=== PATIENT | female | born 2000 | race American Indian/Alaskan Native ===

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

== ENCOUNTER 2020-02-04 11:38 | Emergency (ER) | payer MEDICAID, OTHER ==
[2020-02-04 11:53] VITALS: BP 138/81; PULSE 88
--- NOTE | 2020-02-04 12:02 | EDM.PDOC ---
ED HPI GENERAL MEDICAL PROBLEM - General Chief Complaint: General Stated Complaint: POSSIBLE BLOOD CLOTS Time Seen by Provider: 02/04/20 11:55 Source of Information: Reports: Patient History Limitations: Reports: No Limitations - History of Present Illness INITIAL COMMENTS - FREE TEXT/NARRATIVE: This 19 yo female patient reports to the ED due to believing she may have blood clots. The patient reports she noticed some swelling and pain in her right upper arm as well as noticed some "spots" on her legs. The patient reports she has also had a sore throat (with drainage), a cough, chills and generalized body aches. The patient reports she has been isolating herself with no travel or contact with ill people. The patient reports she has not even had her children around her. The patient reports her symptoms started 2-3 days ago. The patient reports she looked up the symptoms on the internet. Onset Date: 02/02/20 Duration: Constant, Getting Worse Location: Reports: Other Quality: Reports: Other Severity: Mild Improves with: Reports: None Worsens with: Reports: None Context: Reports: Other Associated Symptoms: Reports: No Other Symptoms Generalized Pain Score (Numeric/FACES): 3 - Related Data Allergies Allergy/AdvReac Type Severity Reaction Status Date / Time amoxicillin Allergy Rash Verified 02/04/20 11:45 Home Meds: Home Meds . [No Known Home Meds] 12/26/17 [History] Ferrous Sulfate 325 mg PO DAILY 02/04/20 [History] Past Medical History - Past Health History Medical/Surgical History: Denies Medical/Surgical History HEENT History: Reports: None Cardiovascular History: Reports: None Respiratory History: Reports: None Gastrointestinal History: Reports: None Genitourinary History: Reports: None LOAN CONSULTANT History: Reports: , Other (See Below) Other LOAN CONSULTANT History: vaginal delivery Musculoskeletal History: Reports: None Neurological History: Reports: None Psychiatric History: Reports: Depression, Suicide Attempt Endocrine/Metabolic History: Reports: None Hematologic History: Reports: None Immunologic History: Reports: None Oncologic (Cancer) History: Reports: None Dermatologic History: Reports: None - Infectious Disease History Infectious Disease History: Reports: None - Past Surgical History Head Surgeries/Procedures: Reports: None Other HEENT Surgeries/Procedures: dental infection jun 2015 Cardiovascular Surgical History: Reports: None GI Surgical History: Reports: None Social & Family History - Family History Family Medical History: Noncontributory Cardiac: Reports: Hypertension Endocrine/Metabolic: Reports: Diabetes, type II - Tobacco Use Smoking Status *Q: Light Tobacco Smoker Years of Tobacco use: 2 Packs/Tins Daily: 0.3 - Caffeine Use Caffeine Use: Reports: None Other Caffeine Use: OCC - Alcohol Use Days Per Week of Alcohol Use: 2 Number of Drinks Per Day: 8 Total Drinks Per Week: 16 - Recreational Drug Use Recreational Drug Use: Yes Recreational Drug Type: Reports: Marijuana/Hashish Recreational Drug Use Frequency: Weekly - Sexual History Sexual History: Reports: Sexually Active ED ROS GENERAL - Review of Systems Review Of Systems: Comprehensive ROS is negative, except as noted in HPI. ED EXAM, GENERAL - Physical Exam Exam: See Below Exam Limited By: No Limitations General Appearance: Alert, WD/WN, No Apparent Distress, Anxious Eye Exam: Bilateral Eye: EOMI, Normal Inspection, PERRL Ears: Normal External Exam, Normal Canal, Hearing Grossly Normal, Normal TMs Nose: Normal Inspection, Normal Mucosa, No Blood Throat/Mouth: Normal Lips, Normal Teeth, Normal Gums, Normal Voice, No Airway Compromise, Other (post nasal drip) Head: Atraumatic, Normocephalic Neck: Normal Inspection, Supple, Non-Tender, Full Range of Motion Respiratory/Chest: No Respiratory Distress, Lungs Clear, Normal Breath Sounds, No Accessory Muscle Use, Chest Non-Tender Cardiovascular: Normal Peripheral Pulses, Regular Rate, Rhythm, No Edema, No Gallop, No JVD, No Murmur, No Rub GI/Abdominal: Normal Bowel Sounds, Soft, Non-Tender, No Organomegaly, No Distention, No Abnormal Bruit, No Mass (Female) Exam: Deferred Rectal (Female) Exam: Deferred Back Exam: Normal Inspection, Full Range of Motion, NT Extremities: Normal Inspection, Normal Range of Motion, No Pedal Edema, Normal Capillary Refill, Arm Pain (The patient reports tenderness to her left distal upper arm) Neurological: Alert, Oriented, CN II-XII Intact, Normal Cognition, Normal Gait, Normal Reflexes, No Motor/Sensory Deficits Psychiatric: Anxious Skin Exam: Warm, Dry, Intact, Normal Color, No Rash Lymphatic: No Adenopathy Course - Vital Signs Last Recorded V/S: Last Vital Signs Temp 36.4 C 02/04/20 11:48 Pulse 88 02/04/20 11:48 Resp 16 02/04/20 11:48 BP 138/81 02/04/20 11:48 Pulse Ox 99 02/04/20 11:48 - Orders/Labs/Meds Orders: Active Orders 24 hr Category Date Time Status CULTURE STREP A CONFIRMATION [RM] Stat Lab 02/04/20 11:57 Results CULTURE URINE [RM] Stat Lab 02/04/20 11:57 Received STREP SCRN A RAPID W CULT CONF [RM] Stat Lab 02/04/20 11:57 Results Isolation [COMM] Routine Oth 02/04/20 11:56 Active Labs: Laboratory Tests 02/04/20 02/04/20 02/04/20 Range/Units 11:57 11:57 11:57 WBC (5.0-10.0) 10^3/uL RBC (4.2-5.4) 10^6/uL Hgb (12.0-16.0) g/dL Hct (37.0-47.0) % MCV (80-100) fL MCH (27.0-34.0) pg MCHC (33.0-35.0) g/dL Plt Count (150-450) 10^3/uL Neut % (Auto) (42.2-75.2) % Lymph % (Auto) (20.5-50.1) % [place] % (Auto) (2-8) % Eos % (Auto) (1.0-3.0) % Baso % (Auto) (0.0-1.0) % D-Dimer, Quantitative (0-400) ng/mL Sodium (136-145) mmol/L Potassium (3.5-5.1) mmol/L Chloride (98-107) mmol/L Carbon Dioxide (21-32) mmol/L Anion Gap (7-13) mEq/L BUN (7-18) mg/dL Creatinine (0.55-1.02) mg/dL Est Cr Clr Drug Dosing mL/min Estimated GFR (MDRD) BUN/Creatinine Ratio (No establ ref range) Glucose (74-99) mg/dL Calcium (8.5-10.1) mg/dL Total Bilirubin (0.2-1.0) mg/dL AST (15-37) U/L ALT (14-59) U/L Alkaline Phosphatase (46-116) U/L Total Protein (6.4-8.2) g/dL Albumin (3.4-5.0) g/dL Globulin Albumin/Globulin Ratio Urine Color Yellow (YELLOW) Urine Appearance Clear (CLEAR) Urine pH 7.0 (5.0-9.0) Ur Specific [place] 1.010 (1.005-1.030) Urine Protein Negative (NEGATIVE) Urine Glucose (UA) Negative (NEGATIVE) Urine Ketones Negative (NEGATIVE) Urine Occult Blood Negative (NEGATIVE) Urine Nitrite Negative (NEGATIVE) Urine Bilirubin Negative (NEGATIVE) Urine Urobilinogen 0.2 (0.2-1.0) mg/dL Ur Leukocyte Esterase Trace H (NEGATIVE) Urine RBC 0-5 /HPF Urine WBC 0-5 (0-5/HPF) /HPF Ur Epithelial Cells Occasional (NOT SEEN) /HPF Urine Bacteria Rare (0-FEW/HPF) /HPF Urine HCG, Qual Negative Urine Opiates Screen Negative (NEGATIVE) Ur Oxycodone Screen Negative (NEGATIVE) Urine Methadone Screen Negative (NEGATIVE) Ur Barbiturates Screen Negative (NEGATIVE) U Tricyclic Antidepress Negative (NEGATIVE) Ur Phencyclidine Scrn Negative (NEGATIVE) Ur Amphetamine Screen Positive H (NEGATIVE) U Methamphetamines Scrn Positive H (NEGATIVE) Urine MDMA Screen Negative (NEGATIVE) U Benzodiazepines Scrn Negative (NEGATIVE) Urine Cocaine Screen Negative (NEGATIVE) U Marijuana (THC) Screen Negative (NEGATIVE) 02/04/20 02/04/20 02/04/20 Range/Units 12:35 12:35 12:35 WBC 8.5 (5.0-10.0) 10^3/uL RBC 4.39 (4.2-5.4) 10^6/uL Hgb 13.8 (12.0-16.0) g/dL Hct 40.8 (37.0-47.0) % MCV 92.9 D (80-100) fL MCH 31.4 (27.0-34.0) pg MCHC 33.8 (33.0-35.0) g/dL Plt Count 435 (150-450) 10^3/uL Neut % (Auto) 80.0 H (42.2-75.2) % Lymph % (Auto) 12.5 L (20.5-50.1) % [place] % (Auto) 7.2 (2-8) % Eos % (Auto) 0.2 L (1.0-3.0) % Baso % (Auto) 0.1 (0.0-1.0) % D-Dimer, Quantitative < 100 (0-400) ng/mL Sodium 141 (136-145) mmol/L Potassium 3.3 L (3.5-5.1) mmol/L Chloride 100 (98-107) mmol/L Carbon Dioxide 27 (21-32) mmol/L Anion Gap 17.3 H (7-13) mEq/L BUN 5 L (7-18) mg/dL Creatinine 0.79 (0.55-1.02) mg/dL Est Cr Clr Drug Dosing 94.75 mL/min Estimated GFR (MDRD) > 60 BUN/Creatinine Ratio 6.3 (No establ ref range) Glucose 105 H (74-99) mg/dL Calcium 9.6 (8.5-10.1) mg/dL Total Bilirubin 0.2 (0.2-1.0) mg/dL AST 18 (15-37) U/L ALT 34 (14-59) U/L Alkaline Phosphatase 97 (46-116) U/L Total Protein 8.3 H (6.4-8.2) g/dL Albumin 4.6 (3.4-5.0) g/dL Globulin 3.7 Albumin/Globulin Ratio 1.2 Urine Color (YELLOW) Urine Appearance (CLEAR) Urine pH (5.0-9.0) Ur Specific [place] (1.005-1.030) Urine Protein (NEGATIVE) Urine Glucose (UA) (NEGATIVE) Urine Ketones (NEGATIVE) Urine Occult Blood (NEGATIVE) Urine Nitrite (NEGATIVE) Urine Bilirubin (NEGATIVE) Urine Urobilinogen (0.2-1.0) mg/dL Ur Leukocyte Esterase (NEGATIVE) Urine RBC /HPF Urine WBC (0-5/HPF) /HPF Ur Epithelial Cells (NOT SEEN) /HPF Urine Bacteria (0-FEW/HPF) /HPF Urine HCG, Qual Urine Opiates Screen (NEGATIVE) Ur Oxycodone Screen (NEGATIVE) Urine Methadone Screen (NEGATIVE) Ur Barbiturates Screen (NEGATIVE) U Tricyclic Antidepress (NEGATIVE) Ur Phencyclidine Scrn (NEGATIVE) Ur Amphetamine Screen (NEGATIVE) U Methamphetamines Scrn (NEGATIVE) Urine MDMA Screen (NEGATIVE) U Benzodiazepines Scrn (NEGATIVE) Urine Cocaine Screen (NEGATIVE) U Marijuana (THC) Screen (NEGATIVE) Departure - Departure Time of Disposition: 13:10 Disposition: Home, Self-Care 01 Condition: Fair Clinical Impression: Methamphetamine use, Viral URI with cough - Discharge Information *PRESCRIPTION DRUG MONITORING PROGRAM REVIEWED*: Not Applicable *COPY OF PRESCRIPTION DRUG MONITORING REPORT IN PATIENT [facility]: Not Applicable Instructions: Viral Respiratory Infection, [id number], Stimulant Use Disorder -Methamphetamines, Finding Treatment for Addiction Forms: ED Department Discharge Care Plan Goals: The patient was advised of the examination and lab results during the visit. The patient was encouraged to avoid using methamphetamines. The patient may take Tylenol or ibuprofen as directed for temporary symptom relief. If the patient has any additional symptoms or concerns, the patient should either return to the emergency department or visit her primary care facility. Sepsis Event Note - Evaluation Sepsis Screening Result: No Definite Risk - Focused Exam Vital Signs: Vital Signs Temp Pulse Resp BP Pulse Ox 02/04/20 11:48 36.4 C 88 16 138/81 99 Date Exam was Performed: 02/04/20 Time Exam was Performed: 13:10 - My Orders Last 24 Hours: My Active Orders 02/04/20 11:56 Isolation [COMM] Routine 02/04/20 11:57 CULTURE STREP A CONFIRMATION [RM] Stat CULTURE URINE [RM] Stat STREP SCRN A RAPID W CULT CONF [RM] Stat - Assessment/Plan Last 24 Hours: My Active Orders 02/04/20 11:56 Isolation [COMM] Routine 02/04/20 11:57 CULTURE STREP A CONFIRMATION [RM] Stat CULTURE URINE [RM] Stat STREP SCRN A RAPID W CULT CONF [RM] Stat
[2020-02-04 13:01] LABS: ANION GAP 17.3 mEq/L (7-13); CHLORIDE,CL 100 mmol/L (98-107); SODIUM,NA 141 mmol/L (136-145)
== END 2020-02-04 13:15 | disposition home or self-care (01) ==
LOC: DL.ED 11:38
DX: J06.9 Acute upper respiratory infection, unspecified (principal); F15.90 Other stimulant use, unspecified, uncomplicated; F17.210 Nicotine dependence, cigarettes, uncomplicated; Z88.1 Allergy status to other antibiotic agents
CPT/HCPCS: 36415; 80053; 80305-QW; 81001; 81025; 85025; 85379; 87081; 87086; 87430; 87804; 99283

== ENCOUNTER 2020-08-23 14:46 | Emergency (ER) | payer SELFPAY ==
[2020-08-23] MEDS ORDERED: Bacitracin Oint 1 GM U/D Packet TOP ONE (14:51)
[2020-08-23] MEDS ORDERED: Lidocaine 1% 30 ML SDV INJECT ONE (14:51)
[2020-08-23 15:04] VITALS: BP 124/62; PULSE 74
--- NOTE | 2020-08-23 15:35 | EDM.PDOC ---
ED HPI GENERAL MEDICAL PROBLEM - General Chief Complaint: Laceration Stated Complaint: LACERATION Time Seen by Provider: 08/23/20 15:10 Source of Information: Reports: Patient, RN, RN Notes Reviewed History Limitations: Reports: No Limitations - History of Present Illness INITIAL COMMENTS - FREE TEXT/NARRATIVE: Patient presents to the ED via EMS for complaints of a laceration to her left hand. The patient states she sustained the cut about one hour ago while she was removing a lid from a metal can. She states she cleaned the cut and attempted to stop the bleeding with with pressure, but the bleeding would not stop. She states she is up to date on her tetanus vaccine. She denies loss of motor or sensory function to the hand or digits. - Related Data Allergies Allergy/AdvReac Type Severity Reaction Status Date / Time amoxicillin Allergy Rash Verified 02/04/20 11:45 Home Meds: Home Meds . [No Known Home Meds] 12/26/17 [History] Past Medical History - Past Health History Medical/Surgical History: Denies Medical/Surgical History HEENT History: Reports: None Cardiovascular History: Reports: None Respiratory History: Reports: None Gastrointestinal History: Reports: None Genitourinary History: Reports: None CAMERA MAKER History: Reports: , Other (See Below) Other CAMERA MAKER History: vaginal delivery Musculoskeletal History: Reports: None Neurological History: Reports: None Psychiatric History: Reports: Depression, Suicide Attempt Endocrine/Metabolic History: Reports: None Hematologic History: Reports: None Immunologic History: Reports: None Oncologic (Cancer) History: Reports: None Dermatologic History: Reports: None - Infectious Disease History Infectious Disease History: Reports: None - Past Surgical History Head Surgeries/Procedures: Reports: None Other HEENT Surgeries/Procedures: dental infection jun 2015 Cardiovascular Surgical History: Reports: None GI Surgical History: Reports: None Social & Family History - Family History Family Medical History: Noncontributory Cardiac: Reports: Hypertension Endocrine/Metabolic: Reports: Diabetes, type II - Caffeine Use Caffeine Use: Reports: None Other Caffeine Use: OCC - Sexual History Sexual History: Reports: Sexually Active ED ROS GENERAL - Review of Systems Review Of Systems: Comprehensive ROS is negative, except as noted in HPI. ED EXAM, SKIN/RASH Exam: See Below Exam Limited By: No Limitations General Appearance: Alert, WD/WN, Mild Distress Peripheral Pulses: 2+: Radial (L), Radial (R) Extremities: Other (4cm laceration to anderson aspect of hand; No involvement of the digits) Neurological: Alert, Oriented, CN II-XII Intact, Normal Cognition, No Motor/Sensory Deficits Psychiatric: Normal Affect, Normal Mood Skin: Warm, Dry, Normal Color, No Rash, Wound/Incision (Laceration to left palm). No: Ecchymosis, Erythema, Excoriations, Mottled, Pallor, Petechiae Location, Skin: Palms (Left palm) Associated features: Warmth, Tenderness. No: Swelling, Induration, Crusting, Weeping ED SKIN PROCEDURES - Laceration/Wound Repair Left Mid-Anterior Hand Appearance: Subcutaneous, Linear, Clean Distal NVT: Neuro & Vascular Intact, No Tendon Injury Anesthetic Type: Local Local Anesthesia - Lidocaine (Xylocaine): 1% Plain Local Anesthetic Volume: Other (10cc) Skin Prep: Chlorhexidine (Hibiciens) Exploration/Debridement/Repair: Wound Explored, In a Bloodless Field, Explored to Base, No Foreign Material Found, Wound Margins Revised Closed with: Sutures Lac/Wound length In cm: 4 Suture Size: 4-0 # of Sutures: 5 Suture Type: Prolene, Interrupted, Simple Drain Placement: No Sterile Dressing Applied: Nurse Tetanus Status Addressed: Yes Complications: No Course - Vital Signs Last Recorded V/S: Last Vital Signs Temp 98.1 F 08/23/20 14:45 Pulse 74 08/23/20 14:45 Resp 16 08/23/20 14:45 BP 124/62 08/23/20 14:45 Pulse Ox 99 08/23/20 14:45 - Orders/Labs/Meds Meds: Medications Discontinued Medications Generic Name Dose Route Start Last Admin Trade Name Jeff PRN Reason Stop Dose Admin Bacitracin 1 dose 08/23/20 14:51 08/23/20 14:58 Bacitracin Oint 1 Gm TOP 08/23/20 14:52 1 dose ONETIME ONE Administration Lidocaine HCl 30 ml 08/23/20 14:51 08/23/20 14:58 Xylocaine-Mpf 1% INJECT 08/23/20 14:52 30 ml ONETIME ONE Administration - Re-Assessments/Exams Free Text/Narrative Re-Assessment/Exam: 08/23/20 Laceration to left palm sutured without complication. Sterile dressing applied. Rx given for Bactroban. Patient counseled on wound care and instructed to follow at any primary care facility for suture removal in seven days. Patient verbalized understanding and agreement with the plan of care. Departure - Departure Time of Disposition: 15:30 Disposition: Home, Self-Care 01 Condition: Good Clinical Impression: Laceration of left hand Qualifiers: Encounter type: initial encounter Foreign body presence: without foreign body Qualified Code(s): S61.412A - Laceration without foreign body of left hand, initial encounter - Discharge Information *PRESCRIPTION DRUG MONITORING PROGRAM REVIEWED*: Not Applicable *COPY OF PRESCRIPTION DRUG MONITORING REPORT IN PATIENT [facility]: Not Applicable Instructions: Laceration Care, Adult, [id number] Forms: ED Department Discharge Additional Instructions: Rx: Bactroban Keep wound clean and dry. Change dressing two times a day; morning and night. Stitches will need to be removed in seven days; you can arrange this at any clinic. Take acetaminophen (Tylenol) 650mg every six hours or ibuprofen (Advil/Motrin) 400mg every six hours for pain. You can stagger these medications so you are taking a dose every three hours. You can put ice on the affected area every hour for 20 minutes as swelling persists. Sepsis Event Note (ED) - Evaluation Sepsis Screening Result: No Definite Risk
== END 2020-08-23 15:47 | disposition home or self-care (01) ==
LOC: DL.ED 14:46
DX: S61.412A Laceration without foreign body of left hand, initial encounter (principal); Z88.1 Allergy status to other antibiotic agents; W26.8XXA Contact with other sharp object(s), not elsewhere classified, initial encounter
CPT/HCPCS: 12002; 99283; J2001

== ENCOUNTER 2020-09-14 11:47 | Emergency (ER) | payer SELFPAY ==
[2020-09-14 12:15] VITALS: BP 142/54; PULSE 78
--- NOTE | 2020-09-14 12:20 | EDM.PDOC ---
ED HPI GENERAL MEDICAL PROBLEM - General Chief Complaint: ENT Problem Stated Complaint: HEADACHES CHEST PAINS FATIGUE Time Seen by Provider: 09/14/20 12:10 Source of Information: Reports: Patient History Limitations: Reports: No Limitations - History of Present Illness INITIAL COMMENTS - FREE TEXT/NARRATIVE: Patient is here for dental infection. She has been dealing with it for about a month. She was given penicillin initially and completed her course. She has been trying to get into a dentist, but has not been able to get an appointment. She noted 2 days ago the sore throat, bad taste, swelling around her tooth started back up. She was seen at [facility] and given another course of penicillin. She took 3 doses, then moved and lost her prescription. Duration: Day(s): (2) Location: Reports: Face, Neck Quality: Reports: Pressure, Throbbing Improves with: Reports: Medication Worsens with: Reports: Eating Associated Symptoms: Denies: Cough, Fever/Chills - Related Data Allergies Allergy/AdvReac Type Severity Reaction Status Date / Time amoxicillin Allergy Rash Verified 02/04/20 11:45 Home Meds: Home Meds . 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 Musculoskeletal History: Reports: None Neurological History: Reports: None Psychiatric History: Reports: Depression, Suicide Attempt Endocrine/Metabolic History: Reports: None Hematologic History: Reports: None Immunologic History: Reports: None Oncologic (Cancer) History: Reports: None Dermatologic History: Reports: None - Infectious Disease History Infectious Disease History: Reports: None - Past Surgical History Head Surgeries/Procedures: Reports: None Other HEENT Surgeries/Procedures: dental infection jun 2015 Cardiovascular Surgical History: Reports: None GI Surgical History: Reports: None Social & Family History - Family History Family Medical History: No Pertinent Family History Cardiac: Reports: Hypertension Endocrine/Metabolic: Reports: Diabetes, type II - Caffeine Use Caffeine Use: Reports: None Other Caffeine Use: OCC - Sexual History Sexual History: Reports: Sexually Active ED ROS ENT - Review of Systems Review Of Systems: Comprehensive ROS is negative, except as noted in HPI. ED EXAM, ENT - Physical Exam Exam: See Below Exam Limited By: No Limitations General Appearance: Alert, WD/WN, No Apparent Distress Eye Exam: Bilateral Eye: Normal Inspection Ears: Normal External Exam Mouth/Throat: Normal Lips, Dental Abcess, Pharyngeal Erythema (mild), Tonsillar Swelling (mild). No: Uvular Deviation Head: Atraumatic, Normocephalic Neck: Normal Inspection, Supple, Non-Tender. No: Lymphadenopathy (L), Lymphadenopathy (R) Respiratory/Chest: No Respiratory Distress, Lungs Clear, Normal Breath Sounds, No Accessory Muscle Use, Chest Non-Tender Cardiovascular: Normal Peripheral Pulses, Regular Rate, Rhythm, No Edema, No Gallop, No JVD, No Murmur, No Rub GI/Abdominal: Soft, Non-Tender (Female) Exam: Deferred Rectal (Female) Exam: Deferred Extremities: Normal Inspection, Normal Range of Motion, Non-Tender, No Pedal Edema, Normal Capillary Refill Neurological: Alert, Oriented, Normal Cognition, Normal Reflexes Psychiatric: Normal Affect, Normal Mood Skin: Warm, Dry, Intact, Normal Color, No Rash Lymphatic: No Adenopathy Departure - Departure Time of Disposition: 12:19 Disposition: Home, Self-Care 01 Condition: Good Clinical Impression: Dental abscess - Discharge Information Instructions: Dental Abscess, [id number] Forms: ED Department Discharge Additional Instructions: Penicillin 500 mg BID for 10 days, do not lose the prescription again Over the counter medications for relief of symptoms Follow up with primary care provider in 5-7 days
== END 2020-09-14 12:28 | disposition home or self-care (01) ==
LOC: DL.ED 11:47
DX: K04.7 Periapical abscess without sinus (principal); Z88.1 Allergy status to other antibiotic agents
CPT/HCPCS: 99283

== ENCOUNTER 2020-09-18 14:14 | Emergency (ER) | payer SELFPAY ==
[2020-09-18 14:26] VITALS: BP 118/65; PULSE 81
--- NOTE | 2020-09-18 15:12 | EDM.PDOC ---
ED HPI GENERAL MEDICAL PROBLEM - General Chief Complaint: Upper Extremity Injury/Pain Stated Complaint: CHEST PAIN AND PAIN IN LEFT ARM Time Seen by Provider: 09/18/20 14:35 Source of Information: Reports: Patient, RN, RN Notes Reviewed History Limitations: Reports: No Limitations - History of Present Illness INITIAL COMMENTS - FREE TEXT/NARRATIVE: Patient presents to the ED via personal vehicle with complaints of pain to the left upper arm. The patient reports this pain began this morning upon awakening from sleep. She describes the pain as an achy and dull in nature; she states it radiates into her left shoulder and chest wall. She denies recent or past injury to the area. The patient reports she took one dose of Tylenol 650mg this morning and the pain improved to the point of rating it at a 0/10. She denies current pain in her chest or arm, but states she is worried as she knows chest pain is "bad." She denies fever, shaking chills, recent illness, chest pre ssure, palpitations, shortness of breath, dyspepsia, diaphoresis, nausea, vomiting, diarrhea, or loss of motor/sensory function to the affected extremity. She does attest to a mild headache which also improved with administration of the home Tylenol. She denies a history of tobacco, alcohol, or recreational drug use. Left Upper Arm Pain Score (Numeric/FACES): 4 - Related Data Allergies Allergy/AdvReac Type Severity Reaction Status Date / Time amoxicillin Allergy Rash Verified 09/18/20 14:19 Home Meds: Home Meds . 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 Musculoskeletal History: Reports: None Neurological History: Reports: None Psychiatric History: Reports: Addiction, Depression, Suicide Attempt Endocrine/Metabolic History: Reports: None Hematologic History: Reports: None Immunologic History: Reports: None Oncologic (Cancer) History: Reports: None Dermatologic History: Reports: None - Infectious Disease History Infectious Disease History: Reports: None - Past Surgical History Head Surgeries/Procedures: Reports: None Other HEENT Surgeries/Procedures: dental infection jun 2015 Cardiovascular Surgical History: Reports: None GI Surgical History: Reports: None Social & Family History - Family History Family Medical History: No Pertinent Family History Cardiac: Reports: Hypertension Endocrine/Metabolic: Reports: Diabetes, type II - Tobacco Use Tobacco Use Status *Q: Never Tobacco User Second Hand Smoke Exposure: No - Caffeine Use Caffeine Use: Reports: Coffee, Energy Drinks Other Caffeine Use: OCC - Recreational Drug Use Recreational Drug Use: No - Sexual History Sexual History: Reports: Sexually Active Review of Systems - Review of Systems Review Of Systems: Comprehensive ROS is negative, except as noted in HPI. ED EXAM, GENERAL - Physical Exam Exam: See Below Exam Limited By: No Limitations General Appearance: Alert, WD/WN, No Apparent Distress Eye Exam: Bilateral Eye: EOMI, Normal Inspection, PERRL Throat/Mouth: Normal Inspection, Normal Voice, No Airway Compromise Head: Atraumatic, Normocephalic Neck: Normal Inspection, Supple, Non-Tender, Full Range of Motion Respiratory/Chest: No Respiratory Distress, Lungs Clear, Normal Breath Sounds, No Accessory Muscle Use, Chest Non-Tender Cardiovascular: Normal Peripheral Pulses, Regular Rate, Rhythm, No Edema, No Gallop, No JVD, No Murmur, No Rub Peripheral Pulses: 2+: Radial (L), Radial (R), Dorsalis Pedis (L), Dorsalis Pedis (R) GI/Abdominal: Normal Bowel Sounds, Soft, Non-Tender, No Distention, No Mass, Pelvis Stable (Female) Exam: Deferred Rectal (Female) Exam: Deferred Back Exam: Normal Inspection, Full Range of Motion. No: CVA Tenderness (L), CVA Tenderness (R) Extremities: Normal Inspection, Normal Range of Motion, Non-Tender, No Pedal Edema, Normal Capillary Refill Neurological: Alert, Oriented, CN II-XII Intact, Normal Cognition, Normal Gait, No Motor/Sensory Deficits Psychiatric: Normal Affect, Normal Mood Skin Exam: Warm, Dry, Intact, Normal Color, No Rash. No: Ecchymosis, Erythema, Mottled, Pallor, Petechiae #1 Interpretation EKG Date: 09/18/20 Time: 15:03 Rhythm: NSR Rate (Beats/Min): 77 [place]: Normal P-Wave: Present QRS: Normal ST-T: Normal QT: Normal Comparison: No Change EKG Interpretation Comments: NSR; No evidence of acute ischemia Course - Vital Signs Last Recorded V/S: Last Vital Signs Temp 97.6 F 09/18/20 14:22 Pulse 81 09/18/20 14:22 Resp 16 09/18/20 14:22 BP 118/65 09/18/20 14:22 Pulse Ox 97 09/18/20 14:22 - Orders/Labs/Meds Labs: Laboratory Tests 09/18/20 09/18/20 09/18/20 Range/Units 15:09 15:09 15:09 WBC 8.2 (5.0-10.0) 10^3/uL RBC 4.07 L (4.2-5.4) 10^6/uL Hgb 11.5 L D (12.0-16.0) g/dL Hct 35.7 L (37.0-47.0) % MCV 87.7 D (80-100) fL MCH 28.3 (27.0-34.0) pg MCHC 32.2 L (33.0-35.0) g/dL Plt Count 426 (150-450) 10^3/uL Neut % (Auto) 68.9 (42.2-75.2) % Lymph % (Auto) 19.2 L (20.5-50.1) % [place] % (Auto) 10.5 H (2-8) % Eos % (Auto) 1.3 (1.0-3.0) % Baso % (Auto) 0.1 (0.0-1.0) % Sodium 137 (136-145) mmol/L Potassium 3.7 (3.5-5.1) mmol/L Chloride 101 (98-107) mmol/L Carbon Dioxide 28 (21-32) mmol/L Anion Gap 11.7 (7-13) mEq/L BUN 10 (7-18) mg/dL Creatinine 0.64 (0.55-1.02) mg/dL Est Cr Clr Drug Dosing 110.90 mL/min Estimated GFR (MDRD) > 60 BUN/Creatinine Ratio 15.6 (No establ ref range) Glucose 93 (74-99) mg/dL Lactic Acid 0.9 (0.4-2.0) mmol/L Calcium 9.0 (8.5-10.1) mg/dL Total Bilirubin 0.2 (0.2-1.0) mg/dL AST 15 (15-37) U/L ALT 34 (14-59) U/L Alkaline Phosphatase 81 (46-116) U/L Troponin I < 0.017 (0.000-0.056) ng/mL C-Reactive Protein < 0.2 (0.0-0.9) mg/dL Total Protein 7.4 (6.4-8.2) g/dL Albumin 4.0 (3.4-5.0) g/dL Globulin 3.4 Albumin/Globulin Ratio 1.2 - Re-Assessments/Exams Free Text/Narrative Re-Assessment/Exam: 09/18/20 Cardiac workup negative for acute processes. Patient continues to deny pain to the left upper extremity. Results from today's workup discussed with patient; she verbalized agreement and understanding with the plan for discharge. Departure - Departure Time of Disposition: 16:03 Disposition: Home, Self-Care 01 Condition: Good Clinical Impression: Chest wall pain, Left upper limb pain - Discharge Information *PRESCRIPTION DRUG MONITORING PROGRAM REVIEWED*: Not Applicable *COPY OF PRESCRIPTION DRUG MONITORING REPORT IN PATIENT [facility]: Not Applicable Instructions: Chest Wall Pain, [id number] Forms: ED Department Discharge Additional Instructions: 1.) You may take acetaminophen (Tylenol) 650mg every 6 hours for pain. You may take ibuprofen (Motrin/Advil) 400mg every 6 hours for pain. You may stagger these medications so you are taking a dose every three hours. 2.) Drink plenty of fluids to stay hydrated. 3.) Follow up with you primary care provider in 3-5 days regarding today's visit, or sooner should pain return and does not improve with medications. Sepsis Event Note (ED) - Evaluation Sepsis Screening Result: No Definite Risk
[2020-09-18 15:41] LABS: ANION GAP 11.7 mEq/L (7-13); CHLORIDE,CL 101 mmol/L (98-107); SODIUM,NA 137 mmol/L (136-145)
== END 2020-09-18 16:18 | disposition home or self-care (01) ==
LOC: DL.ED 14:14
DX: M79.622 Pain in left upper arm (principal); R07.89 Other chest pain; Z88.0 Allergy status to penicillin
CPT/HCPCS: 36415; 80053; 83605; 84484; 85025; 86140; 93005; 99285-25

== ENCOUNTER 2020-09-22 18:55 | Emergency (ER) | payer SELFPAY ==
[2020-09-22 19:12] VITALS: BP 116/92; PULSE 88
== END 2020-09-22 20:28 | disposition left against medical advice (07) ==
LOC: DL.ED 18:55
DX: Z53.21 Procedure and treatment not carried out due to patient leaving prior to being seen by health care provider (principal)

== ENCOUNTER 2021-04-19 08:34 | Emergency (ER) | payer MEDICAID ==
[2021-04-19] MEDS ORDERED: Ondansetron 4 MG Tab.DIS PO ONE (09:27)
--- NOTE | 2021-04-19 09:30 | EDM.PDOC ---
ED HPI GENERAL MEDICAL PROBLEM - General Chief Complaint: ENT Problem Stated Complaint: VOMITING Time Seen by Provider: 04/19/21 09:28 Source of Information: Reports: Patient History Limitations: Reports: No Limitations - History of Present Illness INITIAL COMMENTS - FREE TEXT/NARRATIVE: Patient is a unfortunate 20-year-old female who presents emerged part of today with complaint of a. Patient reports that yesterday she started having a sore throat and a little bit of a headache. She reports that today he had some vomiting x2 and this concerned the patient so she presented emerged part for further evaluation she denies any abdominal pain no fever no chills no cough no congestion no chest pain no short of breath she does report that she has painful swallowing however, she is able to tolerate p.o. 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 Musculoskeletal History: Reports: None Neurological History: Reports: None Psychiatric History: Reports: Addiction, Depression, Suicide Attempt Endocrine/Metabolic History: Reports: None Hematologic History: Reports: None Immunologic History: Reports: None Oncologic (Cancer) History: Reports: None Dermatologic History: Reports: None - Infectious Disease History Infectious Disease History: Reports: None - Past Surgical History Head Surgeries/Procedures: Reports: None Other HEENT Surgeries/Procedures: dental infection jun 2015 Cardiovascular Surgical History: Reports: None GI Surgical History: Reports: None Female Surgical History: Reports: Other (See Below) Other Female Surgeries/Procedures: reports removal of L fallopian tbe Social & Family History - Family History Family Medical History: No Pertinent Family History Cardiac: Reports: Hypertension Endocrine/Metabolic: Reports: Diabetes, type II - Caffeine Use Caffeine Use: Reports: None Other Caffeine Use: OCC - Sexual History Sexual History: Reports: Sexually Active ED ROS ENT - Review of Systems Review Of Systems: Comprehensive ROS is negative, except as noted in HPI. Constitutional: Denies: Fever, Chills HEENT: Reports: Throat Pain. Denies: Throat Swelling Respiratory: Denies: Shortness of Breath GI/Abdominal: Reports: Nausea, Vomiting ED EXAM, ENT - Physical Exam Exam: See Below Exam Limited By: No Limitations General Appearance: Alert, WD/WN, Mild Distress Ears: Normal External Exam, Normal Canal, Hearing Grossly Normal, Normal TMs Nose: Normal Inspection, Normal Mucousa, No Blood Mouth/Throat: Normal Inspection, Normal Gums, Normal Lips, Normal Oropharynx, Normal Teeth Head: Atraumatic, Normocephalic Neck: Normal Inspection, Supple, Non-Tender, Full Range of Motion Respiratory/Chest: No Respiratory Distress, Lungs Clear, Normal Breath Sounds, No Accessory Muscle Use, Chest Non-Tender Cardiovascular: Normal Peripheral Pulses, Regular Rate, Rhythm, No Edema, No Gal lop, No JVD, No Murmur, No Rub GI/Abdominal: Normal Bowel Sounds, Soft, Non-Tender, No Organomegaly, No Distention, No Abnormal Bruit, No Mass Back: Normal Inspection, Full Range of Motion Extremities: Normal Inspection, Normal Range of Motion, Non-Tender, No Pedal Edema, Normal Capillary Refill Neurological: Alert Skin: Warm, Dry, No Rash Course - Vital Signs Text/Narrative:: Work-up today is reassuring, patient has a viral pharyngitis with vomiting, will discharge patient home encourage patient follow-up outpatient with PCP will Rx Zofran Last Recorded V/S: Last Vital Signs Temp 97.2 F 04/19/21 08:40 Pulse 78 04/19/21 08:40 Resp 16 04/19/21 08:40 BP 145/80 H 04/19/21 08:40 Pulse Ox 100 04/19/21 08:40 - Orders/Labs/Meds Orders: Active Orders 24 hr Category Date Time Status CULTURE STREP A CONFIRMATION [RM] Stat Lab 04/19/21 09:35 Results STREP SCRN A RAPID W CULT CONF [RM] Stat Lab 04/19/21 09:35 Results Labs: Laboratory Tests 04/19/21 04/19/21 Range/Units 09:35 09:38 Monoscreen Negative Influenza Type A RNA Negative (NEGATIVE) Influenza Type B RNA Negative (NEGATIVE) SARS-CoV-2 RNA (RADHA) Negative (NEGATIVE) Meds: Medications Discontinued Medications Generic Name Dose Route Start Last Admin Trade Name Freq PRN Reason Stop Dose Admin Ondansetron HCl 4 mg 04/19/21 09:27 04/19/21 09:30 Ondansetron 4 Mg Tab.Dis PO 04/19/21 09:28 4 mg ONETIME ONE Administration Departure - Departure Time of Disposition: 10:20 Disposition: Home, Self-Care 01 Clinical Impression: Pharyngitis Qualifiers: Pharyngitis/tonsillitis etiology: unspecified etiology Qualified Code(s): J02.9 - Acute pharyngitis, unspecified Vomiting Qualifiers: Vomiting type: unspecified Vomiting Intractability: unspecified Nausea pres ence: unspecified Qualified Code(s): R11.10 - Vomiting, unspecified - Discharge Information *PRESCRIPTION DRUG MONITORING PROGRAM REVIEWED*: No *COPY OF PRESCRIPTION DRUG MONITORING REPORT IN PATIENT [facility]: No Prescriptions: Ondansetron [Zofran ODT] 4 mg PO TID PRN #8 tab.dis PRN Reason: Vomiting Forms: ED Department Discharge, ED Return to Work/School Form Additional Instructions: Home, rest, adequate fluids, return as needed for worsening condition Sepsis Event Note (ED) - Focused Exam Vital Signs: Vital Signs Temp Pulse Resp BP Pulse Ox 04/19/21 08:40 97.2 F 78 16 145/80 H 100 - My Orders Last 24 Hours: My Active Orders 04/19/21 09:35 CULTURE STREP A CONFIRMATION [RM] Stat STREP SCRN A RAPID W CULT CONF [RM] Stat - Assessment/Plan Last 24 Hours: My Active Orders 04/19/21 09:35 CULTURE STREP A CONFIRMATION [RM] Stat STREP SCRN A RAPID W CULT CONF [RM] Stat
[2021-04-19 09:50] VITALS: BP 145/80; PULSE 78
[2021-04-19 10:18] LABS: CORONAVIRUS COVID-19 NAA NEGATIVE (NEGATIVE)
== END 2021-04-19 10:33 | disposition home or self-care (01) ==
LOC: DL.ED 08:34
DX: J02.9 Acute pharyngitis, unspecified (principal); R11.10 Vomiting, unspecified; Z88.0 Allergy status to penicillin; Z20.822 Contact with and (suspected) exposure to COVID-19
CPT/HCPCS: 0240U; 36415; 86308; 87081; 87430; 99284; A9270

== ENCOUNTER 2022-03-23 16:42 | Emergency (ER) | payer MEDICAID ==
[2022-03-23 17:56] VITALS: BP 122/68; PULSE 97
== END 2022-03-23 17:57 | disposition home or self-care (01) ==
LOC: DL.ED 16:42
DX: H66.011 Acute suppurative otitis media with spontaneous rupture of ear drum, right ear (principal); Z88.0 Allergy status to penicillin
CPT/HCPCS: 99282; 99283

== ENCOUNTER 2023-01-28 19:03 | Emergency (ER) | payer MEDICAID ==
[2023-01-28 19:20] VITALS: BP 145/70; PULSE 138
== END 2023-01-28 20:03 | disposition home or self-care (01) ==
LOC: DL.ED 19:03
DX: S86.911A Strain of unspecified muscle(s) and tendon(s) at lower leg level, right leg, initial encounter (principal); Z88.0 Allergy status to penicillin; X50.1XXA Overexertion from prolonged static or awkward postures, initial encounter
CPT/HCPCS: 73562-RT; 99282; 99283

== ENCOUNTER 2023-04-22 22:32 | Emergency (ER) | payer MEDICAID ==
[2023-04-22] MEDS ORDERED: Sodium Chloride 0.9% 1,000 ML IV ONE (22:59)
[2023-04-22] MEDS ORDERED: Acetaminophen 500 MG Tab PO ONE (23:00)
[2023-04-22] MEDS ORDERED: Sodium Chloride 0.9% 10 ML Syringe FLUSH PRN (23:00)
[2023-04-22 23:28] LABS: BASOPHILS PERCENT AUTO 0.1 % (0.0-1.0); EOSINOPHILS PERCENT AUTO 0.1 % (1.0-3.0); HEMATOCRIT 40.8 % (37.0-47.0); LYMPHOCYTES PERCENT AUTO 9.3 % (20.5-50.1); MEAN CORPUSCULAR HEMOGLOBIN 32.4 pg (27.0-34.0); MEAN CORPUSCULAR HGB CONC 34.3 g/dL (33.0-35.0); MEAN CORPUSCULAR VOLUME 94.4 fL (80-100); MONOCYTES PERCENT AUTO 6.8 % (2-8); NEUTROPHILS PERCENT AUTO 83.7 % (42.2-75.2); PLATELET COUNT,PLT 420 10^3/uL (150-450); RED BLOOD CELL COUNT 4.32 10^6/uL (4.2-5.4); WHITE BLOOD CELL COUNT,WBC 19.1 10^3/uL (5.0-10.0)
[2023-04-22 23:46] LABS: ALBUMIN 3.9 g/dL (3.4-5.0); ANION GAP 15.4 mEq/L (7-13); BILIRUBIN TOTAL 0.3 mg/dL (0.2-1.0); BUN/CREATININE RATIO 7.7 (No establ ref range); CALCIUM 8.8 mg/dL (8.5-10.1); CREATININE 0.78 mg/dL (0.55-1.02); EST CRCL DRUG DOSING (CG) 93.58 mL/min; POTASSIUM,K 3.4 mmol/L (3.5-5.1); PROTEIN TOTAL,TP 7.9 g/dL (6.4-8.2)
[2023-04-22 23:49] LABS: LACTIC ACID 1.6 mmol/L (0.4-2.0)
[2023-04-23] MEDS ORDERED: Sodium Chloride 0.9% 1,000 ML IV ONE (00:23)
[2023-04-23 00:27] LABS: APPEARANCE,URINE CLEAR (CLEAR); BILIRUBIN,URINE NEGATIVE (NEGATIVE); COLOR,URINE YELLOW (YELLOW); GLUCOSE,URINE NEGATIVE (NEGATIVE); KETONES,URINE NEGATIVE (NEGATIVE); LEUKOCYTE ESTERASE,URINE NEGATIVE (NEGATIVE); NITRITE,URINE NEGATIVE (NEGATIVE); OCCULT BLOOD,URINE SMALL (NEGATIVE); PROTEIN,URINE NEGATIVE (NEGATIVE); UROBILINOGEN,URINE 0.2 mg/dL (0.2-1.0)
[2023-04-23] MEDS ORDERED: Ketorolac 30 MG/ML SDV IVPUSH ONE (00:32)
[2023-04-23 00:36] LABS: AMORPHOUS SEDIMENT,URINE RARE /HPF (NOT SEEN); BACTERIA,URINE FEW /HPF (0-FEW/HPF); EPITHELIAL CELLS,URINE FEW /HPF (NOT SEEN); MUCUS,URINE RARE /LPF (NOT SEEN); RBC,URINE 0-5 /HPF (0-5); WBC,URINE 0-5 /HPF (0-5/HPF)
[2023-04-23 01:17] VITALS: BP 103/70; PULSE 104
== END 2023-04-23 02:38 | disposition home or self-care (01) ==
LOC: DL.ED 22:32
DX: L03.116 Cellulitis of left lower limb (principal); Z20.822 Contact with and (suspected) exposure to COVID-19; Z88.1 Allergy status to other antibiotic agents
CPT/HCPCS: 36415; 71045; 80053; 81001; 83605; 85025; 87040; 87635; 87804; 96365; 96375; 99283; 99284; A9270; J1885; J3370; J7030; J7050; J3490; U0002

== ENCOUNTER 2023-04-24 02:45 | Emergency (ER) | payer MEDICAID ==
[2023-04-24 03:18] VITALS: BP 164/98; PULSE 102
[2023-04-24 04:05] LABS: BASOPHILS PERCENT AUTO 0.2 % (0.0-1.0); EOSINOPHILS PERCENT AUTO 1.4 % (1.0-3.0); HEMATOCRIT 36.4 % (37.0-47.0); HEMOGLOBIN 12.4 g/dL (12.0-16.0); LYMPHOCYTES PERCENT AUTO 14.7 % (20.5-50.1); MEAN CORPUSCULAR HEMOGLOBIN 32.4 pg (27.0-34.0); MEAN CORPUSCULAR HGB CONC 34.1 g/dL (33.0-35.0); NEUTROPHILS PERCENT AUTO 74.7 % (42.2-75.2); PLATELET COUNT,PLT 318 10^3/uL (150-450); RED BLOOD CELL COUNT 3.83 10^6/uL (4.2-5.4); WHITE BLOOD CELL COUNT,WBC 10.7 10^3/uL (5.0-10.0)
[2023-04-24 04:28] LABS: A/G RATIO 0.9; ALBUMIN 3.4 g/dL (3.4-5.0); ANION GAP 13.8 mEq/L (7-13); BILIRUBIN TOTAL 0.3 mg/dL (0.2-1.0); BUN/CREATININE RATIO 8.5 (No establ ref range); C-REACTIVE PROTEIN 5.5 mg/dL (0.0-0.9); CALCIUM 8.4 mg/dL (8.5-10.1); CREATININE 0.59 mg/dL (0.55-1.02); EST CRCL DRUG DOSING (CG) 123.72 mL/min; POTASSIUM,K 3.8 mmol/L (3.5-5.1); PROTEIN TOTAL,TP 7.2 g/dL (6.4-8.2)
== END 2023-04-24 04:48 | disposition home or self-care (01) ==
LOC: DL.ED 02:45
DX: L03.116 Cellulitis of left lower limb (principal); E66.9 Obesity, unspecified; Z68.32 Body mass index [BMI] 32.0-32.9, adult; Z88.0 Allergy status to penicillin; W57.XXXA Bitten or stung by nonvenomous insect and other nonvenomous arthropods, initial encounter
CPT/HCPCS: 36415; 80053; 85025; 86140; 99283

== ENCOUNTER 2023-06-19 01:59 | Emergency (ER) | payer MEDICAID ==
[2023-06-19] MEDS ORDERED: Sodium Chloride 0.9% 10 ML Syringe FLUSH PRN (02:38)
[2023-06-19] MEDS ORDERED: Lactated Ringers 1,000 ML IV ONE (02:38)
[2023-06-19 02:43] LABS: BENZODIAZEPINE,URINE NEGATIVE (NEGATIVE); MDMA (ECSTASY), URINE NEGATIVE (NEGATIVE); METHADONE,URINE NEGATIVE (NEGATIVE); METHAMPHETAMINES,URINE NEGATIVE (NEGATIVE); OPIATES,URINE NEGATIVE (NEGATIVE)
[2023-06-19 02:44] LABS: AMPHETAMINES,URINE NEGATIVE (NEGATIVE); BARBITURATES,URINE NEGATIVE (NEGATIVE); OXYCODONE,URINE NEGATIVE (NEGATIVE); PHENCYCLIDINE,URINE NEGATIVE (NEGATIVE); TCA,URINE NEGATIVE (NEGATIVE)
[2023-06-19] MEDS ORDERED: Ondansetron 4 MG/2 ML SDV IVPUSH ONE (02:49)
[2023-06-19 03:12] LABS: BASOPHILS PERCENT AUTO 0.2 % (0.0-1.0); EOSINOPHILS PERCENT AUTO 0.6 % (1.0-3.0); LYMPHOCYTES PERCENT AUTO 20.3 % (20.5-50.1); MEAN CORPUSCULAR HEMOGLOBIN 32.6 pg (27.0-34.0); MEAN CORPUSCULAR HGB CONC 34.1 g/dL (33.0-35.0); MEAN CORPUSCULAR VOLUME 95.6 fL (80-100); MONOCYTES PERCENT AUTO 9.9 % (2-8); PLATELET COUNT,PLT 380 10^3/uL (150-450); RED BLOOD CELL COUNT 4.29 10^6/uL (4.2-5.4); WHITE BLOOD CELL COUNT,WBC 8.6 10^3/uL (5.0-10.0)
[2023-06-19 03:21] LABS: ALANINE AMINOTRANSFERASE,ALT 68 U/L (14-59); ALBUMIN 4.1 g/dL (3.4-5.0); ALKALINE PHOSPHATASE 95 U/L (46-116); ASPARTATE AMNIOTRANSFERASE,AST 76 U/L (15-37); BLOOD UREA NITROGEN,BUN 4 mg/dL (7-18); BUN/CREATININE RATIO 4.7 (No establ ref range); CALCIUM 8.8 mg/dL (8.5-10.1); CARBON DIOXIDE,CO2 28 mmol/L (21-32); CHLORIDE,CL 97 mmol/L (98-107); CREATININE 0.85 mg/dL (0.55-1.02); EST CRCL DRUG DOSING (CG) 85.88 mL/min; GLUCOSE RANDOM 106 mg/dL (70-99); MAGNESIUM 1.4 mg/dL (1.8-2.4); POTASSIUM,K 3.4 mmol/L (3.5-5.1); PROTEIN TOTAL,TP 8.1 g/dL (6.4-8.2)
[2023-06-19 03:27] LABS: ANION GAP 15.4 mEq/L (7-13); SODIUM,NA 137 mmol/L (136-145)
[2023-06-19 03:31] LABS: ESTIMATED GFR 99 mL/min (>=60); ETHANOL BLOOD MEDICAL < 3 mg/dL (0)
[2023-06-19] MEDS ORDERED: Potassium Chloride 10 MEQ Tab.ER PO ONE (03:41)
[2023-06-19] MEDS ORDERED: Take Home: Ondansetron 4 MG Tab.DIS, 5 Tab Pack PO ONE (04:23)
[2023-06-19 05:02] VITALS: BP 125/78; PULSE 77
== END 2023-06-19 04:56 | disposition home or self-care (01) ==
LOC: DL.ED 01:59
DX: F10.139 Alcohol abuse with withdrawal, unspecified (principal); E87.6 Hypokalemia; E83.42 Hypomagnesemia; R11.2 Nausea with vomiting, unspecified; E66.9 Obesity, unspecified; Z68.32 Body mass index [BMI] 32.0-32.9, adult; Z88.0 Allergy status to penicillin; Z77.22 Contact with and (suspected) exposure to environmental tobacco smoke (acute) (chronic); Y90.0 Blood alcohol level of less than 20 mg/100 ml
CPT/HCPCS: 36415; 80053; 80305; 80307; 81025; 83735; 85025; 96361; 96365; 96375; 99284; A9270; J2405; J3475; J7120; Q0162; J3490

== ENCOUNTER 2023-08-20 07:16 | Emergency (ER) | payer MEDICAID ==
[2023-08-20 07:48] VITALS: BP 157/96
[2023-08-20 07:58] LABS: APPEARANCE,URINE CLEAR (CLEAR); BILIRUBIN,URINE NEGATIVE (NEGATIVE); COLOR,URINE YELLOW (YELLOW); GLUCOSE,URINE NEGATIVE (NEGATIVE); KETONES,URINE NEGATIVE (NEGATIVE); LEUKOCYTE ESTERASE,URINE NEGATIVE (NEGATIVE); NITRITE,URINE NEGATIVE (NEGATIVE); OCCULT BLOOD,URINE MODERATE (NEGATIVE); PROTEIN,URINE NEGATIVE (NEGATIVE); UROBILINOGEN,URINE 0.2 mg/dL (0.2-1.0)
[2023-08-20] MEDS ORDERED: Albuterol/Ipratropium 3.0-0.5 MG/3 ML Neb Soln NEB ONE (08:02)
[2023-08-20 08:11] LABS: BACTERIA,URINE RARE /HPF (0-FEW/HPF); EPITHELIAL CELLS,URINE RARE /HPF (NOT SEEN); MUCUS,URINE NOT SEEN /LPF (NOT SEEN); RBC,URINE 0-5 /HPF (0-5); WBC,URINE 0-5 /HPF (0-5/HPF)
[2023-08-20 08:12] LABS: CORONAVIRUS COVID-19 NAA NEGATIVE (NEGATIVE); INFLUENZA A NAA NEGATIVE (NEGATIVE); INFLUENZA B NAA NEGATIVE (NEGATIVE); RESPIRATORY SYNCYTIAL VIR NAA NEGATIVE (NEGATIVE)
[2023-08-20 08:23] VITALS: PULSE 104
== END 2023-08-20 08:42 | disposition home or self-care (01) ==
LOC: DL.ED 07:16
DX: J06.9 Acute upper respiratory infection, unspecified (principal); J20.9 Acute bronchitis, unspecified; J03.80 Acute tonsillitis due to other specified organisms; B96.89 Other specified bacterial agents as the cause of diseases classified elsewhere; Z88.1 Allergy status to other antibiotic agents; Z20.822 Contact with and (suspected) exposure to COVID-19
CPT/HCPCS: 0241U; 71045; 81001; 81025; 87081; 87430; 87491; 87563; 87591; 94640; 99284; J7620-GY

== ENCOUNTER 2024-03-04 09:48 | Emergency (ER) | payer MEDICAID ==
[2024-03-04 10:53] VITALS: BP 144/115; PULSE 101
[2024-03-04 10:54] LABS: APPEARANCE,URINE CLEAR (CLEAR); BILIRUBIN,URINE NEGATIVE (NEGATIVE); COLOR,URINE YELLOW (YELLOW); GLUCOSE,URINE NEGATIVE (NEGATIVE); KETONES,URINE NEGATIVE (NEGATIVE); LEUKOCYTE ESTERASE,URINE NEGATIVE (NEGATIVE); NITRITE,URINE NEGATIVE (NEGATIVE); OCCULT BLOOD,URINE TRACE-INTACT (NEGATIVE); PROTEIN,URINE 30 (NEGATIVE); UROBILINOGEN,URINE 0.2 mg/dL (0.2-1.0)
[2024-03-04 11:00] LABS: CORONAVIRUS COVID-19 NAA NEGATIVE (NEGATIVE); INFLUENZA A NAA NEGATIVE (NEGATIVE); INFLUENZA B NAA NEGATIVE (NEGATIVE)
[2024-03-04 11:18] LABS: BACTERIA,URINE MODERATE /HPF (0-FEW/HPF); EPITHELIAL CELLS,URINE MODERATE /HPF (NOT SEEN); HYALINE CASTS,URINE FEW; MUCUS,URINE MANY /LPF (NOT SEEN); RBC,URINE 0-5 /HPF (0-5)
== END 2024-03-04 11:47 | disposition home or self-care (01) ==
LOC: DL.ED 09:48
DX: J06.9 Acute upper respiratory infection, unspecified (principal); I10 Essential (primary) hypertension; Z88.0 Allergy status to penicillin
CPT/HCPCS: 0240U; 81001; 81025; 99284

== ENCOUNTER 2024-03-04 21:57 | Inpatient (IN) | payer MEDICAID ==
[2024-03-05] MEDS: Sodium Chloride 0.9% 10 ML Syringe FLUSH PRN (01:10)
[2024-03-05] MEDS: Ondansetron 4 MG/2 ML SDV IVPUSH ONE (01:14)
[2024-03-05] MEDS: LORazepam 2 MG/ML SDV IVPUSH ONE ×2 (01:14→05:45)
[2024-03-05 01:20] LABS: HEMATOCRIT 47.2 % (37.0-47.0); HEMOGLOBIN 16.7 g/dL (12.0-16.0); LYMPHOCYTES PERCENT AUTO 5.3 % (20.5-50.1); MEAN CORPUSCULAR HEMOGLOBIN 32.1 pg (27.0-34.0); MEAN CORPUSCULAR HGB CONC 35.4 g/dL (33.0-35.0); MEAN CORPUSCULAR VOLUME 90.6 fL (80-100); MONOCYTES PERCENT AUTO 5.2 % (2-8); NEUTROPHILS PERCENT AUTO 89.5 % (42.2-75.2); PLATELET COUNT,PLT 354 10^3/uL (150-450); RED BLOOD CELL COUNT 5.21 10^6/uL (4.2-5.4); WHITE BLOOD CELL COUNT,WBC 25.8 10^3/uL (5.0-10.0)
[2024-03-05] MEDS: MVI, Adult with Vitamin K 10 ML, Thiamine 100 MG, Folic Acid 1 MG in Sodium Chloride 0.... IV SCH (01:24)
[2024-03-05 01:31] LABS: ALANINE AMINOTRANSFERASE,ALT 103 U/L (14-59); ALBUMIN 4.3 g/dL (3.4-5.0); ALKALINE PHOSPHATASE 84 U/L (46-116); ANION GAP 25.3 mEq/L (7-13); ASPARTATE AMNIOTRANSFERASE,AST 129 U/L (15-37); BILIRUBIN TOTAL 1.1 mg/dL (0.2-1.0); BLOOD UREA NITROGEN,BUN 6 mg/dL (7-18); BUN/CREATININE RATIO 4.1 (No establ ref range); CALCIUM 8.7 mg/dL (8.5-10.1); CARBON DIOXIDE,CO2 21 mmol/L (21-32); CHLORIDE,CL 96 mmol/L (98-107); CREATININE 1.46 mg/dL (0.55-1.02); EST CRCL DRUG DOSING (CG) 51.75 mL/min; GLUCOSE RANDOM 160 mg/dL (70-99); MAGNESIUM 1.1 mg/dL (1.8-2.4); POTASSIUM,K 3.3 mmol/L (3.5-5.1); PROTEIN TOTAL,TP 8.8 g/dL (6.4-8.2); SODIUM,NA 139 mmol/L (136-145)
[2024-03-05 01:33] LABS: ESTIMATED GFR 52 mL/min (>=60); ETHANOL BLOOD MEDICAL < 3 mg/dL (0)
[2024-03-05 02:03] LABS: LIPASE > 250 U/L (16-77)
[2024-03-05] MEDS: GI Cocktail Oral Solution 30 ML PO ONE (02:06)
[2024-03-05] MEDS: Magnesium Sulfate/Water 2 GM in Premix Bag 1 BAG IV ONE (02:07)
[2024-03-05] MEDS ORDERED: Sodium Chloride 0.9% 10 ML Syringe FLUSH PRN (02:07)
[2024-03-05 02:31] LABS: APPEARANCE,URINE SLIGHTLY CLOUDY (CLEAR); BILIRUBIN,URINE SMALL (NEGATIVE); COLOR,URINE YELLOW (YELLOW); GLUCOSE,URINE NEGATIVE (NEGATIVE); KETONES,URINE NEGATIVE (NEGATIVE); LEUKOCYTE ESTERASE,URINE NEGATIVE (NEGATIVE); NITRITE,URINE NEGATIVE (NEGATIVE); OCCULT BLOOD,URINE TRACE-INTACT (NEGATIVE); PROTEIN,URINE 30 (NEGATIVE); UROBILINOGEN,URINE 0.2 mg/dL (0.2-1.0)
[2024-03-05 02:36] LABS: HEMOGLOBIN A1C 5.7 % (<5.7)
[2024-03-05 02:36] LABS: AMPHETAMINES,URINE NEGATIVE (NEGATIVE); BARBITURATES,URINE NEGATIVE (NEGATIVE); BENZODIAZEPINE,URINE NEGATIVE (NEGATIVE); MDMA (ECSTASY), URINE NEGATIVE (NEGATIVE); METHADONE,URINE NEGATIVE (NEGATIVE); METHAMPHETAMINES,URINE NEGATIVE (NEGATIVE); OPIATES,URINE NEGATIVE (NEGATIVE); OXYCODONE,URINE NEGATIVE (NEGATIVE); PHENCYCLIDINE,URINE NEGATIVE (NEGATIVE); TCA,URINE NEGATIVE (NEGATIVE)
[2024-03-05 02:40] LABS: LACTIC ACID 3.9 mmol/L (0.4-2.0)
[2024-03-05] MEDS: Piperacillin/Tazobactam 4.5 GM in Sodium Chloride 0.9% 100 ML IV ONE (02:42)
[2024-03-05 02:43] LABS: BACTERIA,URINE MODERATE /HPF (0-FEW/HPF); EPITHELIAL CELLS,URINE MODERATE /HPF (NOT SEEN)
[2024-03-05] MEDS: HYDROmorphone 1 MG/ML Syringe IVPUSH ONE (02:43)
[2024-03-05 02:44] LABS: HYALINE CASTS,URINE MODERATE
[2024-03-05] MEDS: Metoclopramide 10 MG/2 ML SDV IVPUSH ONE ×2 (02:44→05:45)
[2024-03-05] MEDS: Lactated Ringers 1,000 ML IV SCH (03:09)
[2024-03-05] MEDS: Potassium Chloride 10 MEQ Tab.ER PO ONE (03:17)
[2024-03-05] MEDS: Water For Injection, Sterile 40 ML ONE (03:17)
[2024-03-05] MEDS: DEXTROSE 5% IV ONE (03:18)
[2024-03-05] MEDS: WATER IV ONE (03:18)
[2024-03-05] MEDS: VANCOMYCIN IV ONE (03:18)
[2024-03-05] MEDS ORDERED: hydrALAZINE 20 MG/ML SDV IVPUSH PRN (04:10)
[2024-03-05] MEDS ORDERED: Albuterol/Ipratropium 3.0-0.5 MG/3 ML Neb Soln NEB PRN (04:11)
[2024-03-05] MEDS ORDERED: Polyethylene Glycol 3350 Powder 17 GM Packet PO PRN (04:11)
[2024-03-05] MEDS ORDERED: Magnesium Hydroxide 400 MG/5 ML Susp 30 ML Cup PO PRN (04:11)
[2024-03-05] MEDS ORDERED: Temazepam 15 MG Cap PO PRN (04:11)
[2024-03-05] MEDS ORDERED: Naloxone 2 MG/2 ML Syringe IVPUSH PRN (04:31)
[2024-03-05] MEDS ORDERED: GI Cocktail Oral Solution 30 ML PO PRN (04:33)
[2024-03-05] MEDS: cloNIDine 0.1 MG Tab PO PRN ×2 (05:44→11:46)
[2024-03-05] MEDS: Potassium Chloride 20 MEQ in Premix Bag 1 BAG IV ONE (05:46)
[2024-03-05] MEDS: Scopalamine 1mg/3day Transdermal Patch TOP ONE (05:46)
[2024-03-05] MEDS: Metoprolol Tartrate 5 MG/5 ML SDV IVPUSH PRN (06:46)
[2024-03-05 06:57] LABS: LACTIC ACID 4.7 mmol/L (0.4-2.0)
[2024-03-05] MEDS ORDERED: Piperacillin/Tazobactam 4.5 GM in Sodium Chloride 0.9% 100 ML IV SCH (07:00)
[2024-03-05] MEDS: Sucralfate 1 GM Tab PO SCH (07:11)
[2024-03-05] MEDS: LORazepam 2 MG/ML SDV IV PRN (07:16)
[2024-03-05] MEDS: Diltiazem 25 MG/5 ML SDV IVPUSH ONE (07:56)
[2024-03-05] MEDS: cloNIDine 0.1 MG/Day Transdermal Patch TRDERM SCH (08:31)
[2024-03-05] MEDS: Dextrose 5%-0.9% NaCl 1,000 ML IV SCH (09:27)
[2024-03-05] MEDS: Magnesium Sulfate/D5W 1 GM/100 ML BAG IV ONE (09:28)
[2024-03-05] MEDS: Lactated Ringers 1,000 ML IV ONE (12:38)
[2024-03-05] MEDS: Metoprolol Tartrate 50 MG Tab PO ONE (13:24)
[2024-03-05] MEDS: Metoprolol Tartrate 25 MG Tab PO SCH (18:26)
[2024-03-05] MEDS: chlordiazePOXIDE 25 MG Cap PO SCH (21:02)
[2024-03-05] MEDS: Thiamine 100 MG Tab PO SCH (21:02)
[2024-03-05] MEDS: HYDROmorphone 0.5 MG/0.5 ML Syringe IVPUSH PRN (21:03)
[2024-03-05] MEDS: Folic Acid 1 MG Tab PO SCH (21:45)
[2024-03-05] MEDS: Multivitamin Tab PO SCH (21:46)
[2024-03-05] MEDS: Midodrine 5 MG Tab PO PRN (22:41)
[2024-03-06] MEDS: HYDROmorphone 1 MG/ML Syringe IVPUSH PRN (00:33)
[2024-03-06] MEDS: Lactated Ringers 1,000 ML IV SCH ×2 (02:27→05:50)
[2024-03-06] MEDS: VANCOmycin 1.5 GM/300 ML 1.5 GM in Premix Bag 1 BAG IV SCH (02:29)
[2024-03-06] MEDS: Ibuprofen 600 MG Tab PO PRN (04:22)
[2024-03-06] MEDS ORDERED: Midodrine 5 MG Tab PO PRN (06:08)
[2024-03-06 06:24] LABS: BASOPHILS PERCENT AUTO 0.1 % (0.0-1.0); EOSINOPHILS PERCENT AUTO 0.1 % (1.0-3.0); HEMATOCRIT 43.6 % (37.0-47.0); HEMOGLOBIN 14.1 g/dL (12.0-16.0); LYMPHOCYTES PERCENT AUTO 18.7 % (20.5-50.1); MEAN CORPUSCULAR HEMOGLOBIN 32.5 pg (27.0-34.0); MEAN CORPUSCULAR HGB CONC 32.3 g/dL (33.0-35.0); MEAN CORPUSCULAR VOLUME 100.5 fL (80-100); MONOCYTES PERCENT AUTO 13.5 % (2-8); NEUTROPHILS PERCENT AUTO 67.6 % (42.2-75.2); PLATELET COUNT,PLT 269 10^3/uL (150-450); RED BLOOD CELL COUNT 4.34 10^6/uL (4.2-5.4); WHITE BLOOD CELL COUNT,WBC 12.7 10^3/uL (5.0-10.0)
[2024-03-06 06:40] LABS: ALKALINE PHOSPHATASE 54 U/L (46-116); POTASSIUM,K 5.7 mmol/L (3.5-5.1)
[2024-03-06] MEDS: Metoprolol Tartrate 25 MG Tab PO SCH (06:46)
[2024-03-06 07:43] LABS: ALANINE AMINOTRANSFERASE,ALT 156 U/L (14-59); ALBUMIN 2.4 g/dL (3.4-5.0); ANION GAP 17.7 mEq/L (7-13); ASPARTATE AMNIOTRANSFERASE,AST 824 U/L (15-37); BLOOD UREA NITROGEN,BUN 41 mg/dL (7-18); BUN/CREATININE RATIO 8.5 (No establ ref range); CARBON DIOXIDE,CO2 24 mmol/L (21-32); CHLORIDE,CL 102 mmol/L (98-107); CREATININE 4.85 mg/dL (0.55-1.02); EST CRCL DRUG DOSING (CG) 15.58 mL/min; GLUCOSE RANDOM 153 mg/dL (70-99); MAGNESIUM 2.3 mg/dL (1.8-2.4); PROTEIN TOTAL,TP 5.4 g/dL (6.4-8.2); SODIUM,NA 138 mmol/L (136-145)
[2024-03-06 08:16] LABS: ESTIMATED GFR 12 mL/min (>=60)
[2024-03-06 08:17] LABS: CALCIUM < 5.0 mg/dL (8.5-10.1); LIPASE > 250 U/L (16-77)
[2024-03-06 08:18] LABS: C-REACTIVE PROTEIN > 25.00 ng/dL (<=0.50)
[2024-03-06] MEDS ORDERED: Hydrochlorothiazide 25 MG Tab PO SCH (09:00)
[2024-03-06] MEDS: MVI, Adult with Vitamin K 10 ML, Folic Acid 1 MG, Thiamine 100 MG in Lactated Ringers 1... IV ONE (09:03)
[2024-03-06] MEDS: cloNIDine 0.1 MG Tab PO SCH (09:06)
[2024-03-06] MEDS: Midodrine 5 MG Tab PO SCH ×2 (09:07→21:25)
[2024-03-06] MEDS: Calcium Gluconate 1 GM in Sodium Chloride 0.9% 100 ML IV SCH (12:07)
[2024-03-06 17:24] LABS: ANION GAP 16.5 mEq/L (7-13); BLOOD UREA NITROGEN,BUN 50 mg/dL (7-18); CARBON DIOXIDE,CO2 22 mmol/L (21-32); CHLORIDE,CL 99 mmol/L (98-107); EST CRCL DRUG DOSING (CG) 14.87 mL/min; GLUCOSE RANDOM 110 mg/dL (70-99); POTASSIUM,K 4.5 mmol/L (3.5-5.1); SODIUM,NA 133 mmol/L (136-145)
[2024-03-06 17:28] LABS: CALCIUM < 5.0 mg/dL (8.5-10.1); CREATININE 5.08 mg/dL (0.55-1.02); ESTIMATED GFR 12 mL/min (>=60)
[2024-03-06] MEDS: oxyCODONE 5 MG Tab PO PRN (19:54)
[2024-03-06] MEDS: Calcium Gluconate 1 GM in Sodium Chloride 0.9% 100 ML IV ONE (19:55)
[2024-03-07] MEDS: Acetaminophen 325 MG Tab PO PRN (04:15)
[2024-03-07 06:21] LABS: HEMATOCRIT 28.3 % (37.0-47.0); HEMOGLOBIN 9.5 g/dL (12.0-16.0); MEAN CORPUSCULAR HEMOGLOBIN 32.8 pg (27.0-34.0); MEAN CORPUSCULAR HGB CONC 33.6 g/dL (33.0-35.0); MEAN CORPUSCULAR VOLUME 97.6 fL (80-100); PLATELET COUNT,PLT 199 10^3/uL (150-450); WHITE BLOOD CELL COUNT,WBC 9.2 10^3/uL (5.0-10.0)
[2024-03-07 06:56] LABS: LACTIC ACID 0.6 mmol/L (0.4-2.0)
[2024-03-07 07:00] LABS: BASOPHILS PERCENT AUTO 0.1 % (0.0-1.0); EOSINOPHILS PERCENT AUTO 0.8 % (1.0-3.0); LYMPHOCYTES PERCENT AUTO 11.8 % (20.5-50.1); MONOCYTES PERCENT AUTO 8.5 % (2-8); NEUTROPHILS PERCENT AUTO 78.8 % (42.2-75.2)
[2024-03-07 07:01] LABS: BAND PERCENT MAN 13 %; EOSINOPHILS PERCENT MAN 4 % (1-3); HOWELL JOLLY BODIES 1+ SLIGHT; LYMPHOCYTES PERCENT MAN 12 % (20-50); MONOCYTES PERCENT MAN 6 % (2-8); SEG NEUTROPHILS PERCENT MAN 65 % (42-75); STOMATOCYTES 2+ MODERATE
[2024-03-07 07:02] LABS: GIANT PLATELETS FEW; NRBC MANUAL 3 /100WBC; PLATELET COUNT ESTIMATE ADEQUATE
[2024-03-07 07:03] LABS: ALANINE AMINOTRANSFERASE,ALT 638 U/L (14-59); ALKALINE PHOSPHATASE 52 U/L (46-116); ANION GAP 16.8 mEq/L (7-13); BILIRUBIN TOTAL 0.6 mg/dL (0.2-1.0); BLOOD UREA NITROGEN,BUN 51 mg/dL (7-18); BUN/CREATININE RATIO 12.2 (No establ ref range); CARBON DIOXIDE,CO2 20 mmol/L (21-32); CHLORIDE,CL 98 mmol/L (98-107); CREATININE 4.19 mg/dL (0.55-1.02); EST CRCL DRUG DOSING (CG) 18.03 mL/min; GLUCOSE RANDOM 108 mg/dL (70-99); MAGNESIUM 1.6 mg/dL (1.8-2.4); POTASSIUM,K 3.8 mmol/L (3.5-5.1); PROTEIN TOTAL,TP 5.5 g/dL (6.4-8.2); SODIUM,NA 131 mmol/L (136-145)
[2024-03-07 07:50] LABS: ESTIMATED GFR 15 mL/min (>=60)
[2024-03-07 07:53] LABS: A/G RATIO 0.57; ASPARTATE AMNIOTRANSFERASE,AST > 1000 U/L (15-37); C-REACTIVE PROTEIN > 25.00 ng/dL (<=0.50); CALCIUM < 5.0 mg/dL (8.5-10.1); LIPASE > 250 U/L (16-77)
[2024-03-07] MEDS: Calcium Gluconate 2 GM in Sodium Chloride 0.9% 100 ML IV ONE ×2 (08:15→21:20)
[2024-03-07] MEDS: Magnesium Sulfate/Water 2 GM in Premix Bag 1 BAG IV ONE (09:27)
[2024-03-07] MEDS: Sodium Bicarbonate 650 MG Tab PO SCH (09:27)
[2024-03-07] MEDS: Bumetanide 1 MG/4 ML MDV IVPUSH ONE (11:04)
[2024-03-07] MEDS: cloNIDine 0.1 MG Tab PO PRN (14:38)
[2024-03-07] MEDS: Sennosides/Docusate Sodium 50-8.6 MG Tab PO PRN (14:38)
[2024-03-07] MEDS: cloNIDine 0.1 MG Tab PO ONE (17:13)
[2024-03-07] MEDS: cloNIDine 0.1 MG/Day Transdermal Patch TRDERM SCH (17:13)
[2024-03-07] MEDS: LORazepam 2 MG/ML SDV IVPUSH PRN (17:14)
[2024-03-07] MEDS ORDERED: cefTRIAXone 1 GM Vial IVPUSH SCH (18:30)
[2024-03-07] MEDS: cefTRIAXone 2 GM Vial IVPUSH ONE (18:44)
[2024-03-07 19:34] LABS: ALANINE AMINOTRANSFERASE,ALT 597 U/L (14-59); ALKALINE PHOSPHATASE 77 U/L (46-116); BILIRUBIN TOTAL 0.8 mg/dL (0.2-1.0); BLOOD UREA NITROGEN,BUN 43 mg/dL (7-18); CARBON DIOXIDE,CO2 21 mmol/L (21-32); CHLORIDE,CL 95 mmol/L (98-107); CREATININE 2.86 mg/dL (0.55-1.02); EST CRCL DRUG DOSING (CG) 26.42 mL/min; GLUCOSE RANDOM 150 mg/dL (70-99); PROTEIN TOTAL,TP 5.9 g/dL (6.4-8.2); SODIUM,NA 130 mmol/L (136-145)
[2024-03-07 19:55] LABS: ESTIMATED GFR 23 mL/min (>=60)
[2024-03-07 19:57] LABS: A/G RATIO 0.51; CALCIUM < 5.0 mg/dL (8.5-10.1)
[2024-03-07 20:45] LABS: ASPARTATE AMNIOTRANSFERASE,AST > 1000 U/L (15-37)
[2024-03-07] MEDS ORDERED: ALPRAZolam 0.5 MG Tab PO SCH (21:00)
[2024-03-07] MEDS: ALPRAZolam 0.5 MG Tab PO SCH (21:09)
[2024-03-07] MEDS: Metoprolol Tartrate 50 MG Tab PO SCH (21:09)
[2024-03-07] MEDS: Calcium Gluconate 10% 1 GM/10 ML SDV ONE (21:20)
[2024-03-07] MEDS: Potassium Chloride 20 MEQ in Premix Bag 1 BAG IV ONE (21:31)
[2024-03-07] MEDS: Ketorolac 30 MG/ML SDV IVPUSH ONE (22:37)
[2024-03-07] MEDS: Pantoprazole 40 MG Vial IVPUSH ONE (22:38)
[2024-03-07] MEDS: Calcium Gluconate 2 GM in Sodium Chloride 0.9% 100 ML IV SCH (23:49)
[2024-03-08] MEDS: Ibuprofen 600 MG Tab PO PRN (04:38)
[2024-03-08] MEDS: Potassium Chloride 20 MEQ in Premix Bag 1 BAG IV ONE ×3 (04:39→17:09)
[2024-03-08] MEDS: REMOVE SCOPALAMINE TRDERM ONE (05:11)
[2024-03-08] MEDS: Pantoprazole 40 MG Vial IVPUSH SCH (05:47)
[2024-03-08] MEDS: cloNIDine 0.1 MG Tab PO SCH ×2 (06:05→21:05)
[2024-03-08] MEDS: Bumetanide 1 MG/4 ML MDV IVPUSH ONE (06:18)
[2024-03-08 06:32] LABS: BASOPHILS PERCENT AUTO 0.1 % (0.0-1.0); EOSINOPHILS PERCENT AUTO 1.1 % (1.0-3.0); HEMATOCRIT 23.1 % (37.0-47.0); MEAN CORPUSCULAR HEMOGLOBIN 32.8 pg (27.0-34.0); MEAN CORPUSCULAR HGB CONC 34.6 g/dL (33.0-35.0); MEAN CORPUSCULAR VOLUME 94.7 fL (80-100); MONOCYTES PERCENT AUTO 12.4 % (2-8); NEUTROPHILS PERCENT AUTO 78.4 % (42.2-75.2); PLATELET COUNT,PLT 215 10^3/uL (150-450); RED BLOOD CELL COUNT 2.44 10^6/uL (4.2-5.4); WHITE BLOOD CELL COUNT,WBC 10.1 10^3/uL (5.0-10.0)
[2024-03-08 06:54] LABS: LACTIC ACID 0.6 mmol/L (0.4-2.0)
[2024-03-08 07:09] LABS: ALANINE AMINOTRANSFERASE,ALT 435 U/L (14-59); ALBUMIN 1.8 g/dL (3.4-5.0); ALKALINE PHOSPHATASE 74 U/L (46-116); ANION GAP 15.1 mEq/L (7-13); BILIRUBIN TOTAL 0.7 mg/dL (0.2-1.0); BLOOD UREA NITROGEN,BUN 30 mg/dL (7-18); BUN/CREATININE RATIO 14.7 (No establ ref range); CARBON DIOXIDE,CO2 22 mmol/L (21-32); CHLORIDE,CL 99 mmol/L (98-107); CREATININE 2.04 mg/dL (0.55-1.02); EST CRCL DRUG DOSING (CG) 37.04 mL/min; GLUCOSE RANDOM 118 mg/dL (70-99); MAGNESIUM 1.7 mg/dL (1.8-2.4); POTASSIUM,K 3.1 mmol/L (3.5-5.1); PROTEIN TOTAL,TP 5.7 g/dL (6.4-8.2); SODIUM,NA 133 mmol/L (136-145)
[2024-03-08 07:19] LABS: ESTIMATED GFR 35 mL/min (>=60)
[2024-03-08 07:20] LABS: A/G RATIO 0.46; ASPARTATE AMNIOTRANSFERASE,AST > 1000 U/L (15-37); C-REACTIVE PROTEIN > 25.00 ng/dL (<=0.50); CALCIUM 5.3 mg/dL (8.5-10.1); LIPASE > 250 U/L (16-77)
[2024-03-08] MEDS: Magnesium Sulfate/Water 2 GM in Premix Bag 1 BAG IV ONE (08:16)
[2024-03-08] MEDS: Dexamethasone 4 MG/ML SDV IVPUSH SCH (08:18)
[2024-03-08] MEDS: cefTRIAXone 1 GM Vial IVPUSH SCH (08:18)
[2024-03-08] MEDS: Modafinil 100 MG Tab PO SCH ×2 (08:29→09:03)
[2024-03-08] MEDS: Albuterol/Ipratropium 3.0-0.5 MG/3 ML Neb Soln NEB SCH (09:48)
[2024-03-08] MEDS: HYDROmorphone 1 MG/ML Syringe IVPUSH PRN (09:51)
[2024-03-08] MEDS: Azithromycin 500 MG in Sodium Chloride 0.9% 250 ML IV SCH (10:02)
[2024-03-08] MEDS ORDERED: Magnesium Sulfate/Water 2 GM in Premix Bag 1 BAG IV SCH (12:00)
[2024-03-08] MEDS: Flumazenil 0.1 MG/ML 5 ML MDV IVPUSH PRN (16:01)
[2024-03-08 16:30] LABS: APPEARANCE,URINE SLIGHTLY CLOUDY (CLEAR); BILIRUBIN,URINE NEGATIVE (NEGATIVE); COLOR,URINE YELLOW (YELLOW); GLUCOSE,URINE 100 (NEGATIVE); KETONES,URINE NEGATIVE (NEGATIVE); LEUKOCYTE ESTERASE,URINE NEGATIVE (NEGATIVE); NITRITE,URINE NEGATIVE (NEGATIVE); OCCULT BLOOD,URINE LARGE (NEGATIVE); PH,URINE 5.5 (5.0-9.0); PROTEIN,URINE 100 (NEGATIVE); UROBILINOGEN,URINE 0.2 mg/dL (0.2-1.0)
[2024-03-08 16:37] LABS: EPITHELIAL CELLS,URINE FEW /HPF (NOT SEEN); MUCUS,URINE FEW /LPF (NOT SEEN)
[2024-03-08 16:38] LABS: AMORPHOUS SEDIMENT,URINE FEW /HPF (NOT SEEN); BACTERIA,URINE FEW /HPF (0-FEW/HPF); RBC,URINE 75-100 /HPF (0-5)
[2024-03-08 16:39] LABS: WBC,URINE 0-5 /HPF (0-5/HPF)
[2024-03-08] MEDS ORDERED: Ketorolac 30 MG/ML SDV IVPUSH PRN (16:55)
[2024-03-08] MEDS ORDERED: Melatonin 3 MG Tab PO PRN (17:15)
[2024-03-08] MEDS: Ondansetron 4 MG/2 ML SDV IVPUSH PRN (17:18)
[2024-03-08] MEDS: Lidocaine 5% 700 MG Patch TOP ONE (18:00)
[2024-03-08] MEDS ORDERED: cefTRIAXone 1 GM Vial IVPUSH SCH (18:30)
[2024-03-08] MEDS ORDERED: Metoprolol Tartrate 50 MG Tab PO SCH (21:00)
[2024-03-08] MEDS ORDERED: Bisacodyl 10 MG Supp RECTAL SCH (21:00)
[2024-03-08] MEDS: Metoprolol Tartrate 50 MG Tab PO SCH (21:04)
[2024-03-08 21:05] VITALS: BP 144/87
[2024-03-08] MEDS: HYDROmorphone 1 MG/ML Syringe IVPUSH ONE ×2 (21:35→22:04)
[2024-03-09 00:46] VITALS: PULSE 114
[2024-03-09] MEDS ORDERED: Modafinil 100 MG Tab PO SCH (09:00)
[2024-03-09] MEDS ORDERED: Lidocaine 5% 700 MG Patch TOP SCH (09:00)
[2024-03-12] MEDS ORDERED: CHECK CLONIDINE TRDERM SCH (08:45)
[2024-03-14] MEDS ORDERED: Remove Patch CLONIDINE TRDERM SCH (17:00)
== END 2024-03-08 22:10 | DRG 871 ==
LOC: DL.ED 21:57 → DL.MS 03-05 03:27 → UNDOADMIN 03-05 03:27
PROVIDERS: ADMIT Internal Medicine; ATTEND Internal Medicine
DX: A41.9 Sepsis, unspecified organism (principal); J96.01 Acute respiratory failure with hypoxia; K85.20 Alcohol induced acute pancreatitis without necrosis or infection; K29.91 Gastroduodenitis, unspecified, with bleeding; N17.9 Acute kidney failure, unspecified; E87.20 Acidosis, unspecified; F10.139 Alcohol abuse with withdrawal, unspecified; J90 Pleural effusion, not elsewhere classified; R65.20 Severe sepsis without septic shock; E83.42 Hypomagnesemia; E87.6 Hypokalemia; R73.9 Hyperglycemia, unspecified; R74.01 Elevation of levels of liver transaminase levels; D72.829 Elevated white blood cell count, unspecified; E86.0 Dehydration; I10 Essential (primary) hypertension; F41.9 Anxiety disorder, unspecified; K70.40 Alcoholic hepatic failure without coma; E87.8 Other disorders of electrolyte and fluid balance, not elsewhere classified; E80.6 Other disorders of bilirubin metabolism; E66.9 Obesity, unspecified; I95.9 Hypotension, unspecified; E86.1 Hypovolemia; K70.11 Alcoholic hepatitis with ascites; E83.51 Hypocalcemia; Z88.0 Allergy status to penicillin; Z79.899 Other long term (current) drug therapy; Z86.711 Personal history of pulmonary embolism; Z86.16 Personal history of COVID-19; Z68.33 Body mass index [BMI] 33.0-33.9, adult
CPT/HCPCS: 36415; 80053; 80305; 80307; 81001; 83036; 83605; 83690; 83735; 84145; 85025; 87040 ×2; 93005; 96365; 96367; 96368; 96375; 99285; A9270 ×2; J1170; J2060; J2405; J2543; J2765; J3370; J3411; J3475; J3490; J7030; J7060; J7120; 51798; 71045; 74176; 76770; 80048; 80202; 86140; 93010; 99223; 99233; 99238; C9113; J0456; J0612; J0696; J1100; J1885; J3360; J3480; J7042; J7050; J7620-GY

== ENCOUNTER 2024-06-08 06:26 | Inpatient (IN) | payer MEDICAID ==
[2024-06-08 06:51] LABS: BASOPHILS PERCENT AUTO 0.1 % (0.0-1.0); EOSINOPHILS PERCENT AUTO 1.1 % (1.0-3.0); HEMATOCRIT 40.8 % (37.0-47.0); HEMOGLOBIN 13.3 g/dL (12.0-16.0); LYMPHOCYTES PERCENT AUTO 7.6 % (20.5-50.1); MEAN CORPUSCULAR HEMOGLOBIN 30.2 pg (27.0-34.0); MEAN CORPUSCULAR HGB CONC 32.6 g/dL (33.0-35.0); MEAN CORPUSCULAR VOLUME 92.7 fL (80-100); MONOCYTES PERCENT AUTO 5.4 % (2-8); NEUTROPHILS PERCENT AUTO 85.8 % (42.2-75.2); PLATELET COUNT,PLT 364 10^3/uL (150-450); WHITE BLOOD CELL COUNT,WBC 13.5 10^3/uL (5.0-10.0)
[2024-06-08] MEDS: Sodium Chloride 0.9% 10 ML Syringe FLUSH PRN (06:53)
[2024-06-08 07:19] LABS: A/G RATIO 0.8; ALANINE AMINOTRANSFERASE,ALT 65 U/L (14-59); ALBUMIN 3.5 g/dL (3.4-5.0); ALKALINE PHOSPHATASE 77 U/L (46-116); ANION GAP 12.6 mEq/L (7-13); ASPARTATE AMNIOTRANSFERASE,AST 64 U/L (15-37); BILIRUBIN TOTAL 0.3 mg/dL (0.2-1.0); BLOOD UREA NITROGEN,BUN 7 mg/dL (7-18); BUN/CREATININE RATIO 10.6 (No establ ref range); CALCIUM 8.7 mg/dL (8.5-10.1); CARBON DIOXIDE,CO2 28 mmol/L (21-32); CHLORIDE,CL 100 mmol/L (98-107); CREATININE 0.66 mg/dL (0.55-1.02); EST CRCL DRUG DOSING (CG) 109.66 mL/min; GLUCOSE RANDOM 129 mg/dL (70-99); POTASSIUM,K 3.6 mmol/L (3.5-5.1); PROTEIN TOTAL,TP 7.8 g/dL (6.4-8.2); SODIUM,NA 137 mmol/L (136-145)
[2024-06-08] MEDS ORDERED: Naloxone 2 MG/2 ML Syringe IVPUSH PRN (07:25)
[2024-06-08] MEDS: HYDROmorphone 0.5 MG/0.5 ML Syringe IVPUSH ONE (07:29)
[2024-06-08 07:30] LABS: ESTIMATED GFR 126 mL/min (>=60)
[2024-06-08] MEDS: Lactated Ringers 1,000 ML IV SCH ×2 (07:30→09:05)
[2024-06-08 07:31] LABS: AMYLASE 784 U/L (25-115); ETHANOL BLOOD MEDICAL < 3 mg/dL (0); LIPASE > 250 U/L (16-77)
[2024-06-08 07:56] LABS: APPEARANCE,URINE CLOUDY (CLEAR); BILIRUBIN,URINE NEGATIVE (NEGATIVE); COLOR,URINE DARK YELLOW (YELLOW); GLUCOSE,URINE NEGATIVE (NEGATIVE); KETONES,URINE NEGATIVE (NEGATIVE); LEUKOCYTE ESTERASE,URINE NEGATIVE (NEGATIVE); NITRITE,URINE NEGATIVE (NEGATIVE); OCCULT BLOOD,URINE NEGATIVE (NEGATIVE); PROTEIN,URINE 100 (NEGATIVE); UROBILINOGEN,URINE 0.2 mg/dL (0.2-1.0)
[2024-06-08 08:00] LABS: MDMA (ECSTASY), URINE NEGATIVE (NEGATIVE); METHADONE,URINE NEGATIVE (NEGATIVE); METHAMPHETAMINES,URINE NEGATIVE (NEGATIVE)
[2024-06-08 08:01] LABS: AMPHETAMINES,URINE NEGATIVE (NEGATIVE); BARBITURATES,URINE NEGATIVE (NEGATIVE); BENZODIAZEPINE,URINE NEGATIVE (NEGATIVE); OPIATES,URINE POSITIVE (NEGATIVE); OXYCODONE,URINE NEGATIVE (NEGATIVE); PHENCYCLIDINE,URINE NEGATIVE (NEGATIVE); TCA,URINE NEGATIVE (NEGATIVE)
[2024-06-08 08:07] LABS: BACTERIA,URINE FEW /HPF (0-FEW/HPF); EPITHELIAL CELLS,URINE MANY /HPF (NOT SEEN); MUCUS,URINE MODERATE /LPF (NOT SEEN); RBC,URINE 0-5 /HPF (0-5)
[2024-06-08] MEDS: fentaNYL 100 MCG/2 ML SDV IVPUSH ONE (08:25)
[2024-06-08] MEDS: Iopamidol 612 MG/ML 100 ML Bottle IVPUSH ONE (09:10)
[2024-06-08] MEDS: HYDROmorphone 1 MG/ML Syringe IVPUSH PRN (11:20)
[2024-06-08] MEDS: Sodium Chloride 0.9% 1,000 ML IV SCH (12:00)
[2024-06-08] MEDS: HYDROmorphone 1 MG/ML Syringe IVPUSH ONE (12:54)
[2024-06-08] MEDS: oxyCODONE 5 MG Tab PO PRN (13:03)
[2024-06-08] MEDS ORDERED: Ondansetron 4 MG/2 ML SDV IVPUSH PRN (13:44)
[2024-06-08] MEDS: Ketorolac 30 MG/ML SDV IVPUSH PRN (16:07)
[2024-06-08] MEDS ORDERED: Ondansetron 4 MG Tab.DIS PO PRN (16:07)
[2024-06-08] MEDS: Omeprazole 20 MG Cap.CR PO SCH (16:13)
[2024-06-08] MEDS: Hydrochlorothiazide 25 MG Tab PO SCH (16:13)
[2024-06-08] MEDS: hydrOXYzine HCl 25 MG Tab PO SCH (22:12)
[2024-06-09 05:50] LABS: BASOPHILS PERCENT AUTO 0.2 % (0.0-1.0); EOSINOPHILS PERCENT AUTO 3.5 % (1.0-3.0); HEMATOCRIT 36.4 % (37.0-47.0); HEMOGLOBIN 11.9 g/dL (12.0-16.0); LYMPHOCYTES PERCENT AUTO 13.7 % (20.5-50.1); MEAN CORPUSCULAR HEMOGLOBIN 30.7 pg (27.0-34.0); MEAN CORPUSCULAR HGB CONC 32.7 g/dL (33.0-35.0); MEAN CORPUSCULAR VOLUME 94.1 fL (80-100); MONOCYTES PERCENT AUTO 7.2 % (2-8); NEUTROPHILS PERCENT AUTO 75.4 % (42.2-75.2); PLATELET COUNT,PLT 257 10^3/uL (150-450); RED BLOOD CELL COUNT 3.87 10^6/uL (4.2-5.4); WHITE BLOOD CELL COUNT,WBC 6.2 10^3/uL (5.0-10.0)
[2024-06-09 06:13] LABS: A/G RATIO 0.81; ALBUMIN 2.9 g/dL (3.4-5.0); ANION GAP 8.2 mEq/L (7-13); BILIRUBIN TOTAL 0.5 mg/dL (0.2-1.0); BUN/CREATININE RATIO 6.6 (No establ ref range); CALCIUM 8.4 mg/dL (8.5-10.1); CREATININE 0.61 mg/dL (0.55-1.02); EST CRCL DRUG DOSING (CG) 118.65 mL/min; POTASSIUM,K 3.2 mmol/L (3.5-5.1); PROTEIN TOTAL,TP 6.5 g/dL (6.4-8.2)
[2024-06-09] MEDS: Enoxaparin 40 MG/0.4 ML Syringe SUBCUT SCH (11:10)
[2024-06-09] MEDS: Potassium Chloride 20 MEQ in Premix Bag 1 BAG IV ONE (12:32)
[2024-06-09] MEDS: Potassium Chloride 10 MEQ Tab.ER PO ONE (16:26)
[2024-06-10 08:20] LABS: ANION GAP 8.7 mEq/L (7-13); CREATININE 0.54 mg/dL (0.55-1.02); EST CRCL DRUG DOSING (CG) 134.03 mL/min; POTASSIUM,K 3.7 mmol/L (3.5-5.1)
[2024-06-10 16:46] VITALS: PULSE 85
[2024-06-10 19:13] VITALS: BP 140/89
== END 2024-06-10 19:20 | disposition home or self-care (01) | DRG 440 ==
LOC: DL.ED 06:26 → DL.MS 09:40
PROVIDERS: ADMIT Internal Medicine; ATTEND Internal Medicine
DX: K85.20 Alcohol induced acute pancreatitis without necrosis or infection (principal); K85.80 Other acute pancreatitis without necrosis or infection; F10.90 Alcohol use, unspecified, uncomplicated; I10 Essential (primary) hypertension; Z88.0 Allergy status to penicillin; Z88.1 Allergy status to other antibiotic agents; Z77.22 Contact with and (suspected) exposure to environmental tobacco smoke (acute) (chronic); Z86.16 Personal history of COVID-19; Z79.899 Other long term (current) drug therapy
CPT/HCPCS: 36415; 74177; 80053; 80305; 80307; 81001; 81025; 82150; 83690; 84484; 85025; 93005; 96361; 96374; 96375; 99285; J1170; J3010; J7120 ×2; Q9967; 80048; 93010; 99223; 99233; 99239; 99284; A9270-GY; J1650; J1885; J3480; J3490; J7030

== ENCOUNTER 2024-07-18 07:30 | Inpatient (IN) | payer MEDICAID ==
[2024-07-18 08:24] LABS: BASOPHILS PERCENT AUTO 0.1 % (0.0-1.0); EOSINOPHILS PERCENT AUTO 4.7 % (1.0-3.0); HEMATOCRIT 41.3 % (37.0-47.0); HEMOGLOBIN 13.8 g/dL (12.0-16.0); LYMPHOCYTES PERCENT AUTO 11.1 % (20.5-50.1); MEAN CORPUSCULAR HEMOGLOBIN 30.6 pg (27.0-34.0); MEAN CORPUSCULAR HGB CONC 33.4 g/dL (33.0-35.0); MEAN CORPUSCULAR VOLUME 91.6 fL (80-100); MONOCYTES PERCENT AUTO 7.4 % (2-8); NEUTROPHILS PERCENT AUTO 76.7 % (42.2-75.2); PLATELET COUNT,PLT 405 10^3/uL (150-450); RED BLOOD CELL COUNT 4.51 10^6/uL (4.2-5.4); WHITE BLOOD CELL COUNT,WBC 7.4 10^3/uL (5.0-10.0)
[2024-07-18 08:49] LABS: LACTIC ACID 0.7 mmol/L (0.4-2.0)
[2024-07-18 08:53] LABS: A/G RATIO 0.9; ALANINE AMINOTRANSFERASE,ALT 116 U/L (14-59); ALBUMIN 4.3 g/dL (3.4-5.0); ALKALINE PHOSPHATASE 98 U/L (46-116); AMYLASE 156 U/L (25-115); ASPARTATE AMNIOTRANSFERASE,AST 122 U/L (15-37); BLOOD UREA NITROGEN,BUN 20 mg/dL (7-18); CALCIUM 9.6 mg/dL (8.5-10.1); CARBON DIOXIDE,CO2 23 mmol/L (21-32); CHLORIDE,CL 98 mmol/L (98-107); EST CRCL DRUG DOSING (CG) 90.47 mL/min; GLUCOSE RANDOM 112 mg/dL (70-99); PROTEIN TOTAL,TP 9.2 g/dL (6.4-8.2); SODIUM,NA 135 mmol/L (136-145)
[2024-07-18 09:00] LABS: ESTIMATED GFR 106 mL/min (>=60); ETHANOL BLOOD MEDICAL < 3 mg/dL (0); LIPASE > 250 U/L (16-77)
[2024-07-18 09:01] LABS: HCG QUALITATIVE,SERUM NEGATIVE (NEGATIVE)
[2024-07-18] MEDS: Morphine 4 MG/ML Syringe IVPUSH ONE ×2 (09:19→11:27)
[2024-07-18] MEDS: Ondansetron 4 MG/2 ML SDV IVPUSH ONE (09:19)
[2024-07-18] MEDS: Iopamidol 612 MG/ML 100 ML Bottle IVPUSH ONE (09:28)
[2024-07-18 09:44] LABS: AMPHETAMINES,URINE NEGATIVE (NEGATIVE); APPEARANCE,URINE SLIGHTLY CLOUDY (CLEAR); BARBITURATES,URINE NEGATIVE (NEGATIVE); BENZODIAZEPINE,URINE NEGATIVE (NEGATIVE); BILIRUBIN,URINE MODERATE (NEGATIVE); COLOR,URINE YELLOW (YELLOW); GLUCOSE,URINE NEGATIVE (NEGATIVE); KETONES,URINE 15 (NEGATIVE); LEUKOCYTE ESTERASE,URINE NEGATIVE (NEGATIVE); MDMA (ECSTASY), URINE NEGATIVE (NEGATIVE); METHADONE,URINE NEGATIVE (NEGATIVE); METHAMPHETAMINES,URINE NEGATIVE (NEGATIVE); NITRITE,URINE NEGATIVE (NEGATIVE); OCCULT BLOOD,URINE TRACE-INTACT (NEGATIVE); OPIATES,URINE NEGATIVE (NEGATIVE); PHENCYCLIDINE,URINE NEGATIVE (NEGATIVE); PROTEIN,URINE 100 (NEGATIVE); TCA,URINE NEGATIVE (NEGATIVE); UROBILINOGEN,URINE 0.2 mg/dL (0.2-1.0)
[2024-07-18 09:45] LABS: OXYCODONE,URINE NEGATIVE (NEGATIVE)
[2024-07-18 10:01] LABS: EPITHELIAL CELLS,URINE MANY /HPF (NOT SEEN); MUCUS,URINE MODERATE /LPF (NOT SEEN)
[2024-07-18 10:02] LABS: BACTERIA,URINE FEW /HPF (0-FEW/HPF); RBC,URINE 0-5 /HPF (0-5); WBC,URINE 0-5 /HPF (0-5/HPF)
[2024-07-18] MEDS: Sodium Chloride 0.9% 1,000 ML IV ONE (10:21)
[2024-07-18] MEDS ORDERED: Bisacodyl 5 MG Tab PO PRN (12:40)
[2024-07-18] MEDS ORDERED: Docusate Sodium 100 MG Cap PO PRN (12:40)
[2024-07-18] MEDS: Sodium Chloride 0.9% 1,000 ML IV SCH (13:12)
[2024-07-18] MEDS: HYDROmorphone 0.5 MG/0.5 ML Syringe IVPUSH PRN (13:16)
[2024-07-18] MEDS: Acetaminophen/HYDROcodone 325-5 MG Tab PO PRN (15:04)
[2024-07-18] MEDS: Ondansetron 4 MG/2 ML SDV IVPUSH PRN (19:29)
[2024-07-18] MEDS: Metoprolol Tartrate 50 MG Tab PO SCH (21:14)
[2024-07-18] MEDS: hydrOXYzine HCl 25 MG Tab PO SCH (21:14)
[2024-07-19] MEDS: Melatonin 3 MG Tab PO PRN (01:10)
[2024-07-19 07:07] LABS: BASOPHILS PERCENT AUTO 0.1 % (0.0-1.0); HEMATOCRIT 38.3 % (37.0-47.0); HEMOGLOBIN 12.6 g/dL (12.0-16.0); LYMPHOCYTES PERCENT AUTO 8.7 % (20.5-50.1); MEAN CORPUSCULAR HGB CONC 32.9 g/dL (33.0-35.0); MEAN CORPUSCULAR VOLUME 94.3 fL (80-100); MONOCYTES PERCENT AUTO 5.5 % (2-8); NEUTROPHILS PERCENT AUTO 83.7 % (42.2-75.2); PLATELET COUNT,PLT 371 10^3/uL (150-450); RED BLOOD CELL COUNT 4.06 10^6/uL (4.2-5.4); WHITE BLOOD CELL COUNT,WBC 12.1 10^3/uL (5.0-10.0)
[2024-07-19 08:15] LABS: A/G RATIO 0.9; ALANINE AMINOTRANSFERASE,ALT 80 U/L (14-59); ALBUMIN 3.6 g/dL (3.4-5.0); ALKALINE PHOSPHATASE 83 U/L (46-116); AMYLASE 198 U/L (25-115); ANION GAP 13.2 mEq/L (7-13); ASPARTATE AMNIOTRANSFERASE,AST 73 U/L (15-37); BILIRUBIN TOTAL 0.9 mg/dL (0.2-1.0); BLOOD UREA NITROGEN,BUN 6 mg/dL (7-18); BUN/CREATININE RATIO 9.7 (No establ ref range); CARBON DIOXIDE,CO2 25 mmol/L (21-32); CHLORIDE,CL 101 mmol/L (98-107); CREATININE 0.62 mg/dL (0.55-1.02); EST CRCL DRUG DOSING (CG) 116.74 mL/min; GLUCOSE RANDOM 101 mg/dL (70-99); POTASSIUM,K 4.2 mmol/L (3.5-5.1); PROTEIN TOTAL,TP 7.8 g/dL (6.4-8.2); SODIUM,NA 135 mmol/L (136-145)
[2024-07-19 08:17] LABS: ESTIMATED GFR 128 mL/min (>=60); LIPASE > 250 U/L (16-77)
[2024-07-19] MEDS ORDERED: Melatonin 3 MG Tab PO PRN (08:22)
[2024-07-19] MEDS: Omeprazole 20 MG Cap.CR PO SCH (09:29)
[2024-07-19] MEDS: Folic Acid 1 MG Tab PO SCH (09:29)
[2024-07-19] MEDS: Enoxaparin 40 MG/0.4 ML Syringe SUBCUT SCH (09:31)
[2024-07-19] MEDS: FLU (Flulaval Triv) 24-25(6MOS UP)/PF 45 MCG/0.5 ML Syringe IM ONE (20:10)
[2024-07-19] MEDS ORDERED: Calcium Carbonate 500 MG Tab.Chew PO PRN (20:10)
[2024-07-19] MEDS: Pantoprazole 40 MG Tab.CR PO SCH (21:31)
[2024-07-19] MEDS: Zolpidem 5 MG Tab PO PRN (21:31)
[2024-07-20 06:09] LABS: BASOPHILS PERCENT AUTO 0.1 % (0.0-1.0); EOSINOPHILS PERCENT AUTO 0.9 % (1.0-3.0); HEMATOCRIT 33.1 % (37.0-47.0); HEMOGLOBIN 10.8 g/dL (12.0-16.0); LYMPHOCYTES PERCENT AUTO 5.9 % (20.5-50.1); MEAN CORPUSCULAR HEMOGLOBIN 30.6 pg (27.0-34.0); MEAN CORPUSCULAR HGB CONC 32.6 g/dL (33.0-35.0); MEAN CORPUSCULAR VOLUME 93.8 fL (80-100); MONOCYTES PERCENT AUTO 7.9 % (2-8); NEUTROPHILS PERCENT AUTO 85.2 % (42.2-75.2); PLATELET COUNT,PLT 297 10^3/uL (150-450); RED BLOOD CELL COUNT 3.53 10^6/uL (4.2-5.4); WHITE BLOOD CELL COUNT,WBC 10.6 10^3/uL (5.0-10.0)
[2024-07-20 08:04] LABS: ALANINE AMINOTRANSFERASE,ALT 58 U/L (14-59); ALKALINE PHOSPHATASE 86 U/L (46-116); AMYLASE 226 U/L (25-115); ANION GAP 15.8 mEq/L (7-13); ASPARTATE AMNIOTRANSFERASE,AST 47 U/L (15-37); BILIRUBIN TOTAL 0.9 mg/dL (0.2-1.0); BLOOD UREA NITROGEN,BUN 6 mg/dL (7-18); BUN/CREATININE RATIO 11.3 (No establ ref range); CALCIUM 8.8 mg/dL (8.5-10.1); CARBON DIOXIDE,CO2 23 mmol/L (21-32); CHLORIDE,CL 101 mmol/L (98-107); CREATININE 0.53 mg/dL (0.55-1.02); EST CRCL DRUG DOSING (CG) 136.56 mL/min; GLUCOSE RANDOM 73 mg/dL (70-99); POTASSIUM,K 3.8 mmol/L (3.5-5.1); PROTEIN TOTAL,TP 7.1 g/dL (6.4-8.2); SODIUM,NA 136 mmol/L (136-145)
[2024-07-20 08:06] LABS: A/G RATIO 0.73; ESTIMATED GFR 133 mL/min (>=60); LIPASE > 250 U/L (16-77)
[2024-07-20] MEDS: Meropenem 1 GM SDV IVPUSH SCH (14:15)
[2024-07-21 06:18] LABS: BASOPHILS PERCENT AUTO 0.1 % (0.0-1.0); HEMATOCRIT 31.8 % (37.0-47.0); HEMOGLOBIN 10.6 g/dL (12.0-16.0); LYMPHOCYTES PERCENT AUTO 8.5 % (20.5-50.1); MEAN CORPUSCULAR HEMOGLOBIN 31.1 pg (27.0-34.0); MEAN CORPUSCULAR HGB CONC 33.3 g/dL (33.0-35.0); MEAN CORPUSCULAR VOLUME 93.3 fL (80-100); MONOCYTES PERCENT AUTO 11.8 % (2-8); NEUTROPHILS PERCENT AUTO 77.6 % (42.2-75.2); PLATELET COUNT,PLT 294 10^3/uL (150-450); RED BLOOD CELL COUNT 3.41 10^6/uL (4.2-5.4); WHITE BLOOD CELL COUNT,WBC 7.9 10^3/uL (5.0-10.0)
[2024-07-21 06:40] LABS: ALBUMIN 2.9 g/dL (3.4-5.0); ANION GAP 14.5 mEq/L (7-13); BILIRUBIN TOTAL 0.5 mg/dL (0.2-1.0); BUN/CREATININE RATIO 6.7 (No establ ref range); CREATININE 0.6 mg/dL (0.55-1.02); EST CRCL DRUG DOSING (CG) 120.63 mL/min; POTASSIUM,K 3.5 mmol/L (3.5-5.1); PROTEIN TOTAL,TP 7.2 g/dL (6.4-8.2)
[2024-07-21 06:42] LABS: A/G RATIO 0.67
[2024-07-22 06:38] LABS: BASOPHILS PERCENT AUTO 0.3 % (0.0-1.0); EOSINOPHILS PERCENT AUTO 3.4 % (1.0-3.0); HEMATOCRIT 32.3 % (37.0-47.0); HEMOGLOBIN 10.8 g/dL (12.0-16.0); LYMPHOCYTES PERCENT AUTO 16.7 % (20.5-50.1); MEAN CORPUSCULAR HEMOGLOBIN 31.1 pg (27.0-34.0); MEAN CORPUSCULAR HGB CONC 33.4 g/dL (33.0-35.0); MEAN CORPUSCULAR VOLUME 93.1 fL (80-100); MONOCYTES PERCENT AUTO 15.1 % (2-8); NEUTROPHILS PERCENT AUTO 64.5 % (42.2-75.2); PLATELET COUNT,PLT 342 10^3/uL (150-450); RED BLOOD CELL COUNT 3.47 10^6/uL (4.2-5.4); WHITE BLOOD CELL COUNT,WBC 5.9 10^3/uL (5.0-10.0)
[2024-07-22 06:48] LABS: ANION GAP 8.5 mEq/L (7-13); BILIRUBIN TOTAL 0.3 mg/dL (0.2-1.0); BUN/CREATININE RATIO 3.2 (No establ ref range); CALCIUM 9.2 mg/dL (8.5-10.1); CREATININE 0.62 mg/dL (0.55-1.02); EST CRCL DRUG DOSING (CG) 116.74 mL/min; POTASSIUM,K 3.5 mmol/L (3.5-5.1); PROTEIN TOTAL,TP 7.4 g/dL (6.4-8.2)
[2024-07-22 06:52] LABS: A/G RATIO 0.68
[2024-07-22] MEDS: Sodium Chloride 0.9% 10 ML Syringe FLUSH PRN (08:29)
[2024-07-23 06:24] LABS: BASOPHILS PERCENT AUTO 0.2 % (0.0-1.0); EOSINOPHILS PERCENT AUTO 4.2 % (1.0-3.0); HEMATOCRIT 31.6 % (37.0-47.0); HEMOGLOBIN 10.4 g/dL (12.0-16.0); LYMPHOCYTES PERCENT AUTO 24.4 % (20.5-50.1); MEAN CORPUSCULAR HEMOGLOBIN 30.9 pg (27.0-34.0); MEAN CORPUSCULAR HGB CONC 32.9 g/dL (33.0-35.0); MEAN CORPUSCULAR VOLUME 93.8 fL (80-100); MONOCYTES PERCENT AUTO 15.2 % (2-8); PLATELET COUNT,PLT 361 10^3/uL (150-450); RED BLOOD CELL COUNT 3.37 10^6/uL (4.2-5.4)
[2024-07-23 06:38] LABS: ANION GAP 9.4 mEq/L (7-13); BILIRUBIN TOTAL 0.2 mg/dL (0.2-1.0); BUN/CREATININE RATIO 7.6 (No establ ref range); CALCIUM 9.1 mg/dL (8.5-10.1); CREATININE 0.66 mg/dL (0.55-1.02); EST CRCL DRUG DOSING (CG) 109.66 mL/min; POTASSIUM,K 3.4 mmol/L (3.5-5.1); PROTEIN TOTAL,TP 7.3 g/dL (6.4-8.2)
[2024-07-23 06:46] LABS: A/G RATIO 0.7
[2024-07-23 09:37] VITALS: BP 121/73; PULSE 60
== END 2024-07-23 13:15 | disposition home or self-care (01) | DRG 439 ==
LOC: DL.ED 07:30 → DL.MS 10:15 → DL.ED 10:45
PROVIDERS: ADMIT Internal Medicine; ATTEND Internal Medicine
DX: K85.20 Alcohol induced acute pancreatitis without necrosis or infection (principal); K86.3 Pseudocyst of pancreas; F10.20 Alcohol dependence, uncomplicated; I10 Essential (primary) hypertension; G47.00 Insomnia, unspecified; K86.0 Alcohol-induced chronic pancreatitis; Z88.0 Allergy status to penicillin; Z79.899 Other long term (current) drug therapy; Z86.711 Personal history of pulmonary embolism; Z87.440 Personal history of urinary (tract) infections; Z86.16 Personal history of COVID-19
CPT/HCPCS: 36415; 74177; 80053; 80305-QW; 80307; 81001; 82150; 83605; 83690; 83735; 84484; 84703; 85025; 93005; 93010; 96374; 96375; 99223; 99232; 99233; 99239; 99284; 99285-25; A9270-GY; J1171; J1650; J2185; J2270; J2405; J3490; J7030; Q9967

== ENCOUNTER 2024-08-25 09:19 | Inpatient (IN) | payer MEDICAID ==
[2024-08-25] MEDS: Iopamidol 612 MG/ML 100 ML Bottle IVPUSH ONE (09:49)
[2024-08-25 10:03] LABS: APPEARANCE,URINE SLIGHTLY CLOUDY (CLEAR); BILIRUBIN,URINE SMALL (NEGATIVE); COLOR,URINE YELLOW (YELLOW); GLUCOSE,URINE NEGATIVE (NEGATIVE); KETONES,URINE NEGATIVE (NEGATIVE); LEUKOCYTE ESTERASE,URINE NEGATIVE (NEGATIVE); NITRITE,URINE NEGATIVE (NEGATIVE); OCCULT BLOOD,URINE MODERATE (NEGATIVE); PROTEIN,URINE 100 (NEGATIVE); UROBILINOGEN,URINE 0.2 mg/dL (0.2-1.0)
[2024-08-25 10:05] LABS: BASOPHILS PERCENT AUTO 0.3 % (0.0-1.0); EOSINOPHILS PERCENT AUTO 0.6 % (1.0-3.0); HEMATOCRIT 43.8 % (37.0-47.0); LYMPHOCYTES PERCENT AUTO 23.2 % (20.5-50.1); MEAN CORPUSCULAR HGB CONC 34.2 g/dL (33.0-35.0); MEAN CORPUSCULAR VOLUME 93.4 fL (80-100); MONOCYTES PERCENT AUTO 5.3 % (2-8); NEUTROPHILS PERCENT AUTO 70.6 % (42.2-75.2); PLATELET COUNT,PLT 472 10^3/uL (150-450); RED BLOOD CELL COUNT 4.69 10^6/uL (4.2-5.4)
[2024-08-25 10:07] LABS: BENZODIAZEPINE,URINE NEGATIVE (NEGATIVE); MDMA (ECSTASY), URINE NEGATIVE (NEGATIVE); METHADONE,URINE NEGATIVE (NEGATIVE); METHAMPHETAMINES,URINE POSITIVE (NEGATIVE); OPIATES,URINE NEGATIVE (NEGATIVE)
[2024-08-25 10:08] LABS: AMPHETAMINES,URINE NEGATIVE (NEGATIVE); BARBITURATES,URINE NEGATIVE (NEGATIVE); OXYCODONE,URINE NEGATIVE (NEGATIVE); PHENCYCLIDINE,URINE NEGATIVE (NEGATIVE); TCA,URINE NEGATIVE (NEGATIVE)
[2024-08-25 10:16] LABS: BACTERIA,URINE FEW /HPF (0-FEW/HPF); EPITHELIAL CELLS,URINE OCCASIONAL /HPF (NOT SEEN); HYALINE CASTS,URINE FEW; MUCUS,URINE OCCASIONAL /LPF (NOT SEEN); WBC,URINE 0-5 /HPF (0-5/HPF)
[2024-08-25 10:26] LABS: ALANINE AMINOTRANSFERASE,ALT 193 U/L (14-59); ALBUMIN 4.1 g/dL (3.4-5.0); ALKALINE PHOSPHATASE 92 U/L (46-116); ANION GAP 20.3 mEq/L (7-13); ASPARTATE AMNIOTRANSFERASE,AST 226 U/L (15-37); BILIRUBIN TOTAL 0.5 mg/dL (0.2-1.0); BLOOD UREA NITROGEN,BUN 9 mg/dL (7-18); BUN/CREATININE RATIO 11.1 (No establ ref range); CALCIUM 9.2 mg/dL (8.5-10.1); CARBON DIOXIDE,CO2 22 mmol/L (21-32); CHLORIDE,CL 99 mmol/L (98-107); CREATININE 0.81 mg/dL (0.55-1.02); EST CRCL DRUG DOSING (CG) 88.59 mL/min; ETHANOL BLOOD MEDICAL 136 mg/dL (0); GLUCOSE RANDOM 151 mg/dL (70-99); INR 1.1 (0.9-1.2); MAGNESIUM 1.6 mg/dL (1.8-2.4); POTASSIUM,K 3.3 mmol/L (3.5-5.1); PROTEIN TOTAL,TP 8.1 g/dL (6.4-8.2); PROTHROMBIN TIME 11.6 SEC (9.0-12.0); SODIUM,NA 138 mmol/L (136-145)
[2024-08-25 10:27] LABS: ESTIMATED GFR 104 mL/min (>=60); LIPASE > 250 U/L (16-77)
[2024-08-25] MEDS: Sodium Chloride 0.9% 2,000 ML IV ONE (10:27)
[2024-08-25] MEDS: Famotidine 20 MG/2 ML SDV IVPUSH ONE (10:28)
[2024-08-25] MEDS: Ondansetron 4 MG/2 ML SDV IVPUSH ONE (10:28)
[2024-08-25] MEDS: Potassium Chloride 20 MEQ in Premix Bag 1 BAG IV ONE (10:54)
[2024-08-25] MEDS: Magnesium Sulfate/Water Premix 2 GM in Premix Bag 1 BAG IV ONE (10:54)
[2024-08-25] MEDS: Morphine 2 MG/ML SYRINGE IVPUSH ONE ×2 (10:58→11:26)
[2024-08-25] MEDS: Promethazine 25 MG/ML SDV IM ONE (11:27)
[2024-08-25] MEDS: HYDROmorphone 0.5 MG/0.5 ML Syringe IVPUSH PRN (12:31)
[2024-08-25] MEDS: Enoxaparin 40 MG/0.4 ML Syringe SUBCUT SCH (12:33)
[2024-08-25] MEDS: Pantoprazole 40 MG Vial IV SCH (12:39)
[2024-08-25] MEDS: Sodium Chloride 0.9% 1,000 ML IV SCH (12:44)
[2024-08-25] MEDS: oxyCODONE 5 MG Tab PO PRN (13:24)
[2024-08-25] MEDS: Ondansetron 4 MG Tab.DIS PO PRN (14:57)
[2024-08-25] MEDS: Morphine 2 MG/ML SYRINGE IVPUSH PRN (15:49)
[2024-08-25] MEDS: Ondansetron 4 MG/2 ML SDV IVPUSH PRN (18:31)
[2024-08-25] MEDS: Metoprolol Tartrate 50 MG Tab PO SCH (19:53)
[2024-08-25] MEDS: hydrOXYzine HCl 25 MG Tab PO SCH (21:49)
[2024-08-26] MEDS: hydrALAZINE 20 MG/ML SDV IVPUSH PRN (01:24)
[2024-08-26 05:59] LABS: HEMATOCRIT 40.2 % (37.0-47.0); HEMOGLOBIN 13.5 g/dL (12.0-16.0); MEAN CORPUSCULAR HEMOGLOBIN 32.5 pg (27.0-34.0); MEAN CORPUSCULAR HGB CONC 33.6 g/dL (33.0-35.0); MEAN CORPUSCULAR VOLUME 96.9 fL (80-100); RED BLOOD CELL COUNT 4.15 10^6/uL (4.2-5.4); WHITE BLOOD CELL COUNT,WBC 12.7 10^3/uL (5.0-10.0)
[2024-08-26 06:14] LABS: ANION GAP 11.6 mEq/L (7-13); CALCIUM 8.4 mg/dL (8.5-10.1); CREATININE 0.68 mg/dL (0.55-1.02); EST CRCL DRUG DOSING (CG) 105.53 mL/min; POTASSIUM,K 3.6 mmol/L (3.5-5.1)
[2024-08-26] MEDS: Thiamine 100 MG Tab PO SCH (08:33)
[2024-08-26] MEDS: Folic Acid 1 MG Tab PO SCH (08:33)
[2024-08-26] MEDS: Magnesium Oxide 400 MG Tab PO SCH (08:33)
[2024-08-27] MEDS: Ketorolac 30 MG/ML SDV IVPUSH PRN (15:04)
[2024-08-27] MEDS: Ketorolac 30 MG/ML SDV ONE (15:05)
[2024-08-27 16:24] VITALS: BP 151/93; PULSE 83
== END 2024-08-27 17:51 | disposition home or self-care (01) | DRG 439 ==
LOC: DL.ED 09:19 → DL.MS 11:28 → DL.ED 12:05
PROVIDERS: ADMIT Internal Medicine; ATTEND Internal Medicine
DX: K85.20 Alcohol induced acute pancreatitis without necrosis or infection (principal); K86.3 Pseudocyst of pancreas; N17.9 Acute kidney failure, unspecified; R94.5 Abnormal results of liver function studies; I10 Essential (primary) hypertension; E87.6 Hypokalemia; F10.920 Alcohol use, unspecified with intoxication, uncomplicated; E83.42 Hypomagnesemia; F15.10 Other stimulant abuse, uncomplicated; E86.0 Dehydration; F10.120 Alcohol abuse with intoxication, uncomplicated; R74.01 Elevation of levels of liver transaminase levels; Z88.0 Allergy status to penicillin; Z79.899 Other long term (current) drug therapy; Z86.711 Personal history of pulmonary embolism; Z87.440 Personal history of urinary (tract) infections; Z86.16 Personal history of COVID-19
CPT/HCPCS: 36415; 74177; 80053; 80305; 80307; 81001; 81025; 82947; 83690; 83735; 84484; 85025; 85610; 93005; 96361; 96365; 96368; 96372; 96375; 99285; J2270 ×2; J2405; J2550; J3475; J3480; J3490; J7030; Q9967; 80048; 85027; 93010; 99223; 99233; 99239; A9270-GY; J0360; J1171; J1650; J1885; J2470

== ENCOUNTER 2024-10-29 15:30 | Emergency (ER) | payer MEDICAID ==
[2024-10-29] MEDS ORDERED: Sodium Chloride 0.9% 10 ML Syringe FLUSH PRN (16:33)
[2024-10-29] MEDS: Ondansetron 4 MG/2 ML SDV IVPUSH ONE (16:52)
[2024-10-29 16:59] LABS: BASOPHILS PERCENT AUTO 0.1 % (0.0-1.0); HEMOGLOBIN 14.7 g/dL (12.0-16.0); LYMPHOCYTES PERCENT AUTO 9.1 % (20.5-50.1); MEAN CORPUSCULAR HEMOGLOBIN 31.3 pg (27.0-34.0); MEAN CORPUSCULAR HGB CONC 34.2 g/dL (33.0-35.0); MEAN CORPUSCULAR VOLUME 91.7 fL (80-100); MONOCYTES PERCENT AUTO 4.9 % (2-8); NEUTROPHILS PERCENT AUTO 85.9 % (42.2-75.2); PLATELET COUNT,PLT 470 10^3/uL (150-450); RED BLOOD CELL COUNT 4.69 10^6/uL (4.2-5.4); WHITE BLOOD CELL COUNT,WBC 11.3 10^3/uL (5.0-10.0)
[2024-10-29 17:26] LABS: INR 1.1 (0.9-1.2); PROTHROMBIN TIME 11.6 SEC (9.0-12.0); PTT,PARTIAL THROMBOPLSTIN TIME 26.3 SEC (22.0-34.0)
[2024-10-29] MEDS: Ondansetron 4 MG Tab.DIS PO ONE (17:28)
[2024-10-29 17:29] LABS: ALANINE AMINOTRANSFERASE,ALT 88 U/L (14-59); ALBUMIN 4.2 g/dL (3.4-5.0); ALKALINE PHOSPHATASE 93 U/L (46-116); ANION GAP 15.7 mEq/L (7-13); ASPARTATE AMNIOTRANSFERASE,AST 49 U/L (15-37); BILIRUBIN TOTAL 0.4 mg/dL (0.2-1.0); BLOOD UREA NITROGEN,BUN 8 mg/dL (7-18); BUN/CREATININE RATIO 12.7 (No establ ref range); CALCIUM 8.9 mg/dL (8.5-10.1); CARBON DIOXIDE,CO2 26 mmol/L (21-32); CHLORIDE,CL 101 mmol/L (98-107); CREATININE 0.63 mg/dL (0.55-1.02); ETHANOL BLOOD MEDICAL 209 mg/dL (0); GLUCOSE RANDOM 142 mg/dL (70-99); MAGNESIUM 1.9 mg/dL (1.8-2.4); POTASSIUM,K 3.7 mmol/L (3.5-5.1); PROTEIN TOTAL,TP 8.2 g/dL (6.4-8.2); SODIUM,NA 139 mmol/L (136-145)
[2024-10-29 17:34] LABS: LACTIC ACID 3.7 mmol/L (0.4-2.0)
[2024-10-29] MEDS: Sodium Chloride 0.9% 1,000 ML IV ONE ×2 (17:36→20:38)
[2024-10-29 17:48] LABS: C-REACTIVE PROTEIN < 0.50 ng/dL (<=0.50); ESTIMATED GFR 127 mL/min (>=60)
[2024-10-29 18:11] LABS: LIPASE > 250 U/L (16-77)
[2024-10-29] MEDS: Iopamidol 612 MG/ML 100 ML Bottle IVPUSH ONE (18:12)
[2024-10-29 19:29] LABS: APPEARANCE,URINE CLEAR (CLEAR); BILIRUBIN,URINE NEGATIVE (NEGATIVE); COLOR,URINE YELLOW (YELLOW); GLUCOSE,URINE NEGATIVE (NEGATIVE); KETONES,URINE NEGATIVE (NEGATIVE); LEUKOCYTE ESTERASE,URINE NEGATIVE (NEGATIVE); NITRITE,URINE NEGATIVE (NEGATIVE); OCCULT BLOOD,URINE NEGATIVE (NEGATIVE); PH,URINE 7.5 (5.0-9.0); PROTEIN,URINE 30 (NEGATIVE); UROBILINOGEN,URINE 0.2 mg/dL (0.2-1.0)
[2024-10-29] MEDS: HYDROmorphone 1 MG/ML Syringe IVPUSH ONE ×2 (19:29→21:37)
[2024-10-29 19:34] LABS: AMPHETAMINES,URINE NEGATIVE (NEGATIVE); BARBITURATES,URINE NEGATIVE (NEGATIVE); BENZODIAZEPINE,URINE NEGATIVE (NEGATIVE); MDMA (ECSTASY), URINE NEGATIVE (NEGATIVE); METHADONE,URINE NEGATIVE (NEGATIVE); METHAMPHETAMINES,URINE NEGATIVE (NEGATIVE); OPIATES,URINE NEGATIVE (NEGATIVE); OXYCODONE,URINE NEGATIVE (NEGATIVE); PHENCYCLIDINE,URINE NEGATIVE (NEGATIVE); TCA,URINE NEGATIVE (NEGATIVE)
[2024-10-29 20:11] LABS: AMORPHOUS SEDIMENT,URINE FEW /HPF (NOT SEEN); BACTERIA,URINE RARE /HPF (0-FEW/HPF); EPITHELIAL CELLS,URINE FEW /HPF (NOT SEEN); MUCUS,URINE FEW /LPF (NOT SEEN); RBC,URINE 0-5 /HPF (0-5); WBC,URINE 0-5 /HPF (0-5/HPF)
[2024-10-29] MEDS: Metoclopramide 10 MG/2 ML SDV IVPUSH ONE (21:18)
[2024-10-29 21:54] VITALS: BP 131/90; PULSE 103
== END 2024-10-29 21:30 ==
LOC: DL.ED 15:30
DX: K85.20 Alcohol induced acute pancreatitis without necrosis or infection (principal); K29.80 Duodenitis without bleeding; F10.920 Alcohol use, unspecified with intoxication, uncomplicated; I10 Essential (primary) hypertension; Z86.16 Personal history of COVID-19; Z79.899 Other long term (current) drug therapy; Z88.0 Allergy status to penicillin
CPT/HCPCS: 36415; 74177; 80053; 80305; 80307; 81001; 81025; 83605; 83690; 83735; 84703; 85025; 85610; 85730; 86140; 93005; 96361; 96374; 96375; 96376; 99285; J1171; J2405; J2765; J7030; Q9967

== ENCOUNTER 2025-01-07 18:01 | Emergency (ER) | payer MEDICAID ==
[2025-01-07] MEDS: Ondansetron 4 MG/2 ML SDV IVPUSH ONE (18:28)
[2025-01-07] MEDS: Sodium Chloride 0.9% 10 ML Syringe FLUSH PRN (18:29)
[2025-01-07] MEDS: HYDROmorphone 0.5 MG/0.5 ML Syringe IVPUSH ONE (18:29)
[2025-01-07 18:30] LABS: BASOPHILS PERCENT AUTO 0.2 % (0.0-1.0); EOSINOPHILS PERCENT AUTO 0.7 % (1.0-3.0); HEMATOCRIT 40.6 % (37.0-47.0); HEMOGLOBIN 13.8 g/dL (12.0-16.0); LYMPHOCYTES PERCENT AUTO 11.5 % (20.5-50.1); MEAN CORPUSCULAR VOLUME 94.2 fL (80-100); MONOCYTES PERCENT AUTO 6.4 % (2-8); NEUTROPHILS PERCENT AUTO 81.2 % (42.2-75.2); PLATELET COUNT,PLT 375 10^3/uL (150-450); RED BLOOD CELL COUNT 4.31 10^6/uL (4.2-5.4); WHITE BLOOD CELL COUNT,WBC 9.7 10^3/uL (5.0-10.0)
[2025-01-07 18:48] LABS: HCG QUALITATIVE,SERUM NEGATIVE (NEGATIVE)
[2025-01-07 19:00] LABS: LACTIC ACID 0.8 mmol/L (0.4-2.0)
[2025-01-07 19:04] LABS: A/G RATIO 0.9; ALANINE AMINOTRANSFERASE,ALT 60 U/L (14-59); ALBUMIN 4.1 g/dL (3.4-5.0); ALKALINE PHOSPHATASE 111 U/L (46-116); AMYLASE 200 U/L (25-115); ANION GAP 13.4 mEq/L (7-13); ASPARTATE AMNIOTRANSFERASE,AST 54 U/L (15-37); BLOOD UREA NITROGEN,BUN 7 mg/dL (7-18); BUN/CREATININE RATIO 9.9 (No establ ref range); C-REACTIVE PROTEIN 2.51 ng/dL (<=0.50); CALCIUM 9.8 mg/dL (8.5-10.1); CARBON DIOXIDE,CO2 28 mmol/L (21-32); CHLORIDE,CL 100 mmol/L (98-107); CREATININE 0.71 mg/dL (0.55-1.02); GLUCOSE RANDOM 111 mg/dL (70-99); MAGNESIUM 2.1 mg/dL (1.8-2.4); POTASSIUM,K 4.4 mmol/L (3.5-5.1); PROTEIN TOTAL,TP 8.7 g/dL (6.4-8.2); SODIUM,NA 137 mmol/L (136-145)
[2025-01-07 19:08] LABS: ESTIMATED GFR 122 mL/min (>=60)
[2025-01-07 19:24] LABS: LIPASE > 250 U/L (16-77)
[2025-01-07] MEDS: Take Home: Acetaminophen/HYDROcodone 325-5 MG, 5 Tab Pack PO ONE (20:12)
[2025-01-07] MEDS: Take Home: Ondansetron 4 MG Tab.DIS, 5 Tab Pack PO ONE (20:12)
[2025-01-07 20:26] VITALS: BP 154/116; PULSE 87
== END 2025-01-07 20:20 | disposition home or self-care (01) ==
LOC: DL.ED 18:01
DX: K85.20 Alcohol induced acute pancreatitis without necrosis or infection (principal); I10 Essential (primary) hypertension; Z88.0 Allergy status to penicillin; Z79.899 Other long term (current) drug therapy; Z86.16 Personal history of COVID-19
CPT/HCPCS: 36415; 80053; 82150; 83605; 83690; 83735; 84484; 84703; 85025; 86140; 93005; 96374; 96375; 99284; 99285; A9270; J2405; Q0162

== ENCOUNTER 2025-02-13 15:55 | Emergency (ER) | payer MEDICAID ==
[2025-02-13] MEDS ORDERED: Sodium Chloride 0.9% 10 ML Syringe FLUSH PRN (16:09)
[2025-02-13 16:22] LABS: BASOPHILS PERCENT AUTO 0.2 % (0.0-1.0); EOSINOPHILS PERCENT AUTO 0.4 % (1.0-3.0); HEMATOCRIT 39.9 % (37.0-47.0); HEMOGLOBIN 13.6 g/dL (12.0-16.0); LYMPHOCYTES PERCENT AUTO 13.3 % (20.5-50.1); MEAN CORPUSCULAR HEMOGLOBIN 31.5 pg (27.0-34.0); MEAN CORPUSCULAR HGB CONC 34.1 g/dL (33.0-35.0); MEAN CORPUSCULAR VOLUME 92.4 fL (80-100); MONOCYTES PERCENT AUTO 4.4 % (2-8); NEUTROPHILS PERCENT AUTO 81.7 % (42.2-75.2); PLATELET COUNT,PLT 441 10^3/uL (150-450); RED BLOOD CELL COUNT 4.32 10^6/uL (4.2-5.4); WHITE BLOOD CELL COUNT,WBC 13.2 10^3/uL (5.0-10.0)
[2025-02-13] MEDS: Ondansetron 4 MG/2 ML SDV IVPUSH ONE ×2 (16:28→18:21)
[2025-02-13] MEDS: Sodium Chloride 0.9% 1,000 ML IV ONE (16:28)
[2025-02-13] MEDS: HYDROmorphone 0.5 MG/0.5 ML Syringe IVPUSH ONE ×2 (16:28→18:22)
[2025-02-13 16:46] LABS: HCG QUALITATIVE,SERUM NEGATIVE (NEGATIVE)
[2025-02-13 16:48] LABS: LACTIC ACID 2.1 mmol/L (0.4-2.0)
[2025-02-13 16:50] LABS: A/G RATIO 1.1; ALANINE AMINOTRANSFERASE,ALT 81 U/L (14-59); ALBUMIN 4.4 g/dL (3.4-5.0); ALKALINE PHOSPHATASE 93 U/L (46-116); ASPARTATE AMNIOTRANSFERASE,AST 52 U/L (15-37); BILIRUBIN TOTAL 0.8 mg/dL (0.2-1.0); BLOOD UREA NITROGEN,BUN 7 mg/dL (7-18); BUN/CREATININE RATIO 9.9 (No establ ref range); CALCIUM 9.3 mg/dL (8.5-10.1); CARBON DIOXIDE,CO2 25 mmol/L (21-32); CHLORIDE,CL 102 mmol/L (98-107); CREATININE 0.71 mg/dL (0.55-1.02); EST CRCL DRUG DOSING (CG) 101.07 mL/min; GLUCOSE RANDOM 97 mg/dL (70-99); MAGNESIUM 1.8 mg/dL (1.8-2.4); PROTEIN TOTAL,TP 8.3 g/dL (6.4-8.2); SODIUM,NA 139 mmol/L (136-145)
[2025-02-13 17:01] LABS: C-REACTIVE PROTEIN < 0.50 ng/dL (<=0.50); ESTIMATED GFR 122 mL/min (>=60); ETHANOL BLOOD MEDICAL < 3 mg/dL (0); LIPASE > 250 U/L (16-77)
[2025-02-13] MEDS: Iopamidol 612 MG/ML 100 ML Bottle IVPUSH ONE (17:03)
[2025-02-13 17:21] VITALS: PULSE 95
[2025-02-13] MEDS: Ketorolac 30 MG/ML SDV IVPUSH ONE (18:21)
[2025-02-13] MEDS: Acetaminophen 500 MG Tab PO ONE (18:24)
[2025-02-13 18:39] VITALS: BP 140/90
== END 2025-02-13 18:38 | disposition home or self-care (01) ==
LOC: DL.ED 15:55
DX: K85.20 Alcohol induced acute pancreatitis without necrosis or infection (principal); I10 Essential (primary) hypertension; Z86.16 Personal history of COVID-19; Z79.899 Other long term (current) drug therapy; Z88.0 Allergy status to penicillin
CPT/HCPCS: 36415; 74177; 80053; 80307; 83605; 83690; 83735; 84703; 85025; 86140; 96361; 96374; 96375; 96376; 99284; A9270; J1885; J2405; J7030; Q9967

== ENCOUNTER 2025-02-16 13:46 | Emergency (ER) | payer MEDICAID ==
[2025-02-16] MEDS ORDERED: Sodium Chloride 0.9% 10 ML Syringe FLUSH PRN (13:54)
[2025-02-16 14:12] LABS: BASOPHILS PERCENT AUTO 0.3 % (0.0-1.0); EOSINOPHILS PERCENT AUTO 2.8 % (1.0-3.0); HEMATOCRIT 38.5 % (37.0-47.0); HEMOGLOBIN 13.2 g/dL (12.0-16.0); LYMPHOCYTES PERCENT AUTO 16.2 % (20.5-50.1); MEAN CORPUSCULAR HEMOGLOBIN 32.4 pg (27.0-34.0); MEAN CORPUSCULAR HGB CONC 34.3 g/dL (33.0-35.0); MEAN CORPUSCULAR VOLUME 94.4 fL (80-100); NEUTROPHILS PERCENT AUTO 75.7 % (42.2-75.2); PLATELET COUNT,PLT 403 10^3/uL (150-450); RED BLOOD CELL COUNT 4.08 10^6/uL (4.2-5.4)
[2025-02-16 14:13] VITALS: BP 141/83; PULSE 76
[2025-02-16] MEDS: Sodium Chloride 0.9% 1,000 ML IV ONE (14:16)
[2025-02-16] MEDS: HYDROmorphone 0.5 MG/0.5 ML Syringe IVPUSH ONE (14:17)
[2025-02-16] MEDS: Ondansetron 4 MG/2 ML SDV IVPUSH ONE (14:18)
[2025-02-16 14:32] LABS: A/G RATIO 0.9; ALANINE AMINOTRANSFERASE,ALT 51 U/L (14-59); ALBUMIN 4.2 g/dL (3.4-5.0); ALKALINE PHOSPHATASE 108 U/L (46-116); AMYLASE 56 U/L (25-115); ANION GAP 11.9 mEq/L (7-13); ASPARTATE AMNIOTRANSFERASE,AST 32 U/L (15-37); BILIRUBIN TOTAL 0.4 mg/dL (0.2-1.0); BLOOD UREA NITROGEN,BUN 8 mg/dL (7-18); BUN/CREATININE RATIO 11.1 (No establ ref range); CALCIUM 9.5 mg/dL (8.5-10.1); CARBON DIOXIDE,CO2 26 mmol/L (21-32); CHLORIDE,CL 99 mmol/L (98-107); CREATININE 0.72 mg/dL (0.55-1.02); EST CRCL DRUG DOSING (CG) 99.67 mL/min; GLUCOSE RANDOM 123 mg/dL (70-99); LIPASE 71 U/L (16-77); POTASSIUM,K 3.9 mmol/L (3.5-5.1); PROTEIN TOTAL,TP 8.7 g/dL (6.4-8.2); SODIUM,NA 133 mmol/L (136-145)
[2025-02-16 14:34] LABS: ESTIMATED GFR 120 mL/min (>=60)
[2025-02-16 14:36] LABS: HCG QUALITATIVE,SERUM NEGATIVE (NEGATIVE); LACTIC ACID 1.2 mmol/L (0.4-2.0)
[2025-02-16] MEDS: GI Cocktail Oral Solution 30 ML PO ONE (14:46)
== END 2025-02-16 14:56 | disposition home or self-care (01) ==
LOC: DL.ED 13:46
DX: K21.9 Gastro-esophageal reflux disease without esophagitis (principal); I10 Essential (primary) hypertension; Z86.16 Personal history of COVID-19; Z79.899 Other long term (current) drug therapy; Z88.0 Allergy status to penicillin
CPT/HCPCS: 36415; 80053; 82150; 83605; 83690; 83735; 84703; 85025; 86140; 96361; 96374; 96375; 99284; A9270; J2405; J7030

== ENCOUNTER 2025-07-10 19:08 | Emergency (ER) | payer MEDICAID ==
[2025-07-10] MEDS ORDERED: Sodium Chloride 0.9% 10 ML Syringe FLUSH PRN (19:47)
[2025-07-10 20:24] LABS: BASOPHILS PERCENT AUTO 0.1 % (0.0-1.0); EOSINOPHILS PERCENT AUTO 0.1 % (1.0-3.0); LYMPHOCYTES PERCENT AUTO 11.0 % (20.5-50.1); MONOCYTES PERCENT AUTO 5.0 % (2-8); NEUTROPHILS PERCENT AUTO 83.8 % (42.2-75.2); PLATELET COUNT,PLT 479 10^3/uL (150-450); RED BLOOD CELL COUNT 4.51 10^6/uL (4.2-5.4); WHITE BLOOD CELL COUNT,WBC 15.0 10^3/uL (5.0-10.0)
[2025-07-10 20:42] LABS: INR 1.1 (0.9-1.2); PTT,PARTIAL THROMBOPLSTIN TIME 24.6 SEC (22.0-34.0)
[2025-07-10 20:46] LABS: A/G RATIO 1.0; ALANINE AMINOTRANSFERASE,ALT 41 U/L (14-59); ASPARTATE AMNIOTRANSFERASE,AST 30 U/L (15-37); BILIRUBIN TOTAL 0.4 mg/dL (0.2-1.0); BLOOD UREA NITROGEN,BUN 11 mg/dL (7-18); CARBON DIOXIDE,CO2 25 mmol/L (21-32); CHLORIDE,CL 105 mmol/L (98-107); CREATININE 0.76 mg/dL (0.55-1.02); EST CRCL DRUG DOSING (CG) 94.42 mL/min; GLUCOSE RANDOM 106 mg/dL (70-99); POTASSIUM,K 3.7 mmol/L (3.5-5.1); PROTEIN TOTAL,TP 8.2 g/dL (6.4-8.2); SODIUM,NA 143 mmol/L (136-145)
[2025-07-10 20:47] LABS: ESTIMATED GFR 112 mL/min (>=60); ETHANOL BLOOD MEDICAL < 3 mg/dL (0)
[2025-07-10 20:48] LABS: LACTIC ACID 3.3 mmol/L (0.4-2.0)
[2025-07-10] MEDS: Iopamidol 612 MG/ML 100 ML Bottle IVPUSH ONE (20:49)
[2025-07-10] MEDS: MVI, Adult with Vitamin K 10 ML, Folic Acid 1 MG, Thiamine 100 MG in Lactated Ringers 1... IV ONE (21:11)
[2025-07-10 21:55] LABS: AMPHETAMINES,URINE NEGATIVE (NEGATIVE); BARBITURATES,URINE NEGATIVE (NEGATIVE); MDMA (ECSTASY), URINE NEGATIVE (NEGATIVE); METHAMPHETAMINES,URINE NEGATIVE (NEGATIVE); OPIATES,URINE NEGATIVE (NEGATIVE); OXYCODONE,URINE NEGATIVE (NEGATIVE); PHENCYCLIDINE,URINE NEGATIVE (NEGATIVE); TCA,URINE NEGATIVE (NEGATIVE)
[2025-07-11 02:03] VITALS: BP 138/97; PULSE 72
[2025-07-11] MEDS: fentaNYL 100 MCG/2 ML SDV IVPUSH ONE (02:14)
== END 2025-07-11 02:15 ==
LOC: DL.ED 19:08
DX: K85.20 Alcohol induced acute pancreatitis without necrosis or infection (principal); I10 Essential (primary) hypertension; Z88.0 Allergy status to penicillin; Z79.899 Other long term (current) drug therapy; Z86.16 Personal history of COVID-19
CPT/HCPCS: 36415; 80053; 80305; 80307; 81025; 83605; 83690; 83735; 84484; 84702; 85025; 85610; 85730; 86140; 87040; 93005; 93010; 96361; 96365; 96372; 96375; 99284; 99285; J1630; J1808; J3010; J3411; J7030; J7120; J3490

== ENCOUNTER 2025-08-10 04:03 | Emergency (ER) | payer MEDICAID ==
[2025-08-10] MEDS ORDERED: Sodium Chloride 0.9% 10 ML Syringe FLUSH PRN (04:22)
[2025-08-10] MEDS: Ketorolac 30 MG/ML SDV IVPUSH ONE (04:29)
[2025-08-10 04:31] LABS: BASOPHILS PERCENT AUTO 0.1 % (0.0-1.0); EOSINOPHILS PERCENT AUTO 3.2 % (1.0-3.0); LYMPHOCYTES PERCENT AUTO 31.9 % (20.5-50.1); MONOCYTES PERCENT AUTO 7.3 % (2-8); NEUTROPHILS PERCENT AUTO 57.5 % (42.2-75.2); PLATELET COUNT,PLT 445 10^3/uL (150-450); RED BLOOD CELL COUNT 4.23 10^6/uL (4.2-5.4); WHITE BLOOD CELL COUNT,WBC 9.1 10^3/uL (5.0-10.0)
[2025-08-10 04:33] LABS: APPEARANCE,URINE CLEAR (CLEAR); GLUCOSE,URINE NEGATIVE (NEGATIVE); OCCULT BLOOD,URINE TRACE-INTACT (NEGATIVE)
[2025-08-10 04:45] LABS: EPITHELIAL CELLS,URINE MODERATE /HPF (NOT SEEN)
[2025-08-10 04:56] LABS: A/G RATIO 1.0; ALANINE AMINOTRANSFERASE,ALT 26.0 U/L (14-59); ASPARTATE AMNIOTRANSFERASE,AST 12.0 U/L (15-37); BILIRUBIN TOTAL 0.2 mg/dL (0.2-1.0); BLOOD UREA NITROGEN,BUN 14.0 mg/dL (7-18); CARBON DIOXIDE,CO2 28.0 mmol/L (21-32); CHLORIDE,CL 104.0 mmol/L (98-107); CREATININE 0.5 mg/dL (0.55-1.02); EST CRCL DRUG DOSING (CG) 143.52 mL/min; GLUCOSE RANDOM 108.0 mg/dL (70-99); POTASSIUM,K 3.7 mmol/L (3.5-5.1); PROTEIN TOTAL,TP 8.0 g/dL (6.4-8.2); SODIUM,NA 142.0 mmol/L (136-145)
[2025-08-10 04:57] LABS: ESTIMATED GFR 134.0 mL/min (>=60)
[2025-08-10 05:40] VITALS: BP 107/58; PULSE 72
== END 2025-08-10 05:41 ==
LOC: DL.ED 04:03
DX: R10.24 Suprapubic pain (principal); I10 Essential (primary) hypertension; Z88.1 Allergy status to other antibiotic agents; Z86.16 Personal history of COVID-19
CPT/HCPCS: 36415; 80053; 81001; 83690; 84702; 85025; 96361; 96374; 99283; 99284-25; J1885; J7030

== ENCOUNTER 2025-09-20 22:47 | Inpatient (IN) | payer MEDICAID ==
[2025-09-20] MEDS ORDERED: Sodium Chloride 0.9% 10 ML Syringe FLUSH PRN (22:55)
[2025-09-20 23:17] LABS: BASOPHILS PERCENT AUTO 0.2 % (0.0-1.0); EOSINOPHILS PERCENT AUTO 0.6 % (1.0-3.0); LYMPHOCYTES PERCENT AUTO 39.8 % (20.5-50.1); MONOCYTES PERCENT AUTO 9.4 % (2-8); NEUTROPHILS PERCENT AUTO 50.0 % (42.2-75.2); PLATELET COUNT,PLT 383 10^3/uL (150-450); RED BLOOD CELL COUNT 4.08 10^6/uL (4.2-5.4); WHITE BLOOD CELL COUNT,WBC 4.9 10^3/uL (5.0-10.0)
[2025-09-20] MEDS: Thiamine 200 MG/2 ML MDV IVPUSH ONE (23:20)
[2025-09-20] MEDS: Ondansetron 4 MG/2 ML SDV IVPUSH PRN (23:20)
[2025-09-20 23:37] LABS: A/G RATIO 1.0; ALANINE AMINOTRANSFERASE,ALT 91.0 U/L (14-59); ASPARTATE AMNIOTRANSFERASE,AST 73.0 U/L (15-37); BILIRUBIN TOTAL 0.2 mg/dL (0.2-1.0); BLOOD UREA NITROGEN,BUN 7.0 mg/dL (7-18); CARBON DIOXIDE,CO2 26.0 mmol/L (21-32); CHLORIDE,CL 105.0 mmol/L (98-107); CREATININE 0.76 mg/dL (0.55-1.02); EST CRCL DRUG DOSING (CG) 93.61 mL/min; ETHANOL BLOOD MEDICAL 297.0 mg/dL (0); GLUCOSE RANDOM 143.0 mg/dL (70-99); POTASSIUM,K 3.4 mmol/L (3.5-5.1); PROTEIN TOTAL,TP 7.9 g/dL (6.4-8.2); SODIUM,NA 143.0 mmol/L (136-145)
[2025-09-20 23:42] LABS: ESTIMATED GFR 111.0 mL/min (>=60)
[2025-09-21] MEDS: Ondansetron 4 MG/2 ML SDV IVPUSH ONE (02:02)
[2025-09-21] MEDS: Lactated Ringers 1,000 ML IV SCH (02:09)
[2025-09-21] MEDS: Heparin Sodium 5,000 Units/ML Vial SUBCUT SCH (02:48)
[2025-09-21] MEDS: MVI, Adult with Vitamin K 10 ML, Folic Acid 1 MG, Thiamine 100 MG in Lactated Ringers 1... IV ONE (02:49)
[2025-09-21] MEDS: metroNIDAZOLE/Normal Saline 500 MG in Premix Bag 1 BAG IV SCH (02:51)
[2025-09-21] MEDS: Potassium Chloride 20 MEQ in Premix Bag 1 BAG IV ONE (02:52)
[2025-09-21 03:05] LABS: APPEARANCE,URINE CLEAR (CLEAR); GLUCOSE,URINE NEGATIVE (NEGATIVE); OCCULT BLOOD,URINE TRACE-INTACT (NEGATIVE)
[2025-09-21 03:06] LABS: IRON,FE 91.0 ug/dL (50-170); PERCENT FE SATURATION 20.0 % (20.0-50.0)
[2025-09-21 03:14] LABS: EPITHELIAL CELLS,URINE FEW /HPF (NOT SEEN)
[2025-09-21 03:16] LABS: AMPHETAMINES,URINE NEGATIVE (NEGATIVE); BARBITURATES,URINE NEGATIVE (NEGATIVE); MDMA (ECSTASY), URINE NEGATIVE (NEGATIVE); METHAMPHETAMINES,URINE NEGATIVE (NEGATIVE); OPIATES,URINE NEGATIVE (NEGATIVE); OXYCODONE,URINE NEGATIVE (NEGATIVE); PHENCYCLIDINE,URINE NEGATIVE (NEGATIVE); TCA,URINE NEGATIVE (NEGATIVE)
[2025-09-21 03:37] LABS: FOLIC ACID 1.7 ng/mL (8.6-58.9); PHOSPHORUS 1.9 mg/dL (2.6-4.7); T4 FREE 0.83 ng/dL (0.76-1.46); TSH ULTRASENSITIVE 5.50 uIU/mL (0.36-3.74)
[2025-09-21 04:20] LABS: LACTIC ACID 1.9 mmol/L (0.4-2.0)
[2025-09-21 04:45] LABS: INR 1.1 (0.9-1.2)
[2025-09-21 06:26] LABS: BASOPHILS PERCENT AUTO 0.2 % (0.0-1.0); EOSINOPHILS PERCENT AUTO 0.2 % (1.0-3.0); LYMPHOCYTES PERCENT AUTO 36.1 % (20.5-50.1); MONOCYTES PERCENT AUTO 7.1 % (2-8); NEUTROPHILS PERCENT AUTO 56.4 % (42.2-75.2); PLATELET COUNT,PLT 337 10^3/uL (150-450); RED BLOOD CELL COUNT 3.72 10^6/uL (4.2-5.4); WHITE BLOOD CELL COUNT,WBC 4.7 10^3/uL (5.0-10.0)
[2025-09-21 06:48] LABS: A/G RATIO 1.0; ALANINE AMINOTRANSFERASE,ALT 73.0 U/L (14-59); ASPARTATE AMNIOTRANSFERASE,AST 49.0 U/L (15-37); BILIRUBIN DIRECT 0.1 mg/dL (0.0-0.2); BILIRUBIN INDIRECT 0.2; BILIRUBIN TOTAL 0.3 mg/dL (0.2-1.0); BLOOD UREA NITROGEN,BUN 4.0 mg/dL (7-18); CARBON DIOXIDE,CO2 26.0 mmol/L (21-32); CHLORIDE,CL 106.0 mmol/L (98-107); CREATININE 0.62 mg/dL (0.55-1.02); EST CRCL DRUG DOSING (CG) 114.74 mL/min; GLUCOSE RANDOM 165.0 mg/dL (70-99); POTASSIUM,K 3.6 mmol/L (3.5-5.1); PROTEIN TOTAL,TP 6.9 g/dL (6.4-8.2); SODIUM,NA 143.0 mmol/L (136-145)
[2025-09-21 06:53] LABS: ESTIMATED GFR 127.0 mL/min (>=60)
[2025-09-21] MEDS: Ondansetron 4 MG/2 ML SDV IVPUSH PRN (08:31)
[2025-09-21] MEDS: Iopamidol 612 MG/ML 100 ML Bottle IVPUSH ONE (09:12)
[2025-09-21] MEDS: fentaNYL 100 MCG/2 ML SDV IVPUSH PRN (09:51)
[2025-09-21] MEDS: Thiamine 200 MG/2 ML MDV IV SCH (10:11)
[2025-09-21] MEDS: Ciprofloxacin in D5W 400 MG in Premix Bag 1 BAG IV SCH (11:14)
[2025-09-21 11:19] VITALS: BP 135/83; PULSE 83
[2025-09-21] MEDS: Potassium Phosphates 21 MMOLE in Sodium Chloride 0.9% 500 ML IV ONE (11:25)
[2025-09-21] MEDS: Scopalamine 1mg/3day Transdermal Patch TRDERM PRN (14:15)
[2025-09-23 12:42] LABS: HAV AB IGM Negative (Negative); HBC IGM Negative (Negative); HEP B SURG AG Negative (Negative); HEP C AB BY CIA Negative (Negative); HEP C AB BY CIA INDEX 0.08 IV
[2025-09-24 15:46] LABS: AMPHETAMINES Negative; BARBITURATES Negative; BENZODIAZEPINES Negative; BUPRENORPHINE Negative; CANNABINOIDS Negative; COCAINE METABOLITES Negative; METHADONE Negative; METHAMPHETAMINE Negative; OPIATES Presumptivepos ng/mL; OXYCODONE Negative; PHENCYCLIDINE Negative
[2025-09-27 10:47] LABS: 6_AM,S/P,QNT <2 ng/mL; CODEINE,S/P,QNT <2 ng/mL; HYDROCODONE,S/P,QNT <2 ng/mL; HYDROMORPHONE,S/P,QNT <2 ng/mL; MORPHINE,S/P,QNT 37 ng/mL; OXYCODONE,S/P,QNT <2 ng/mL; OXYMORPHONE,S/P,QNT <2 ng/mL
== END 2025-09-21 15:43 | disposition left against medical advice (07) | DRG 439 ==
LOC: DL.ED 22:47 → DL.MS 09-21 01:26 → OBSVTOIN 09-21 13:34
PROVIDERS: ADMIT Internal Medicine; ATTEND Internal Medicine
DX: F10.129 Alcohol abuse with intoxication, unspecified (principal); K85.20 Alcohol induced acute pancreatitis without necrosis or infection; E87.20 Acidosis, unspecified; N39.0 Urinary tract infection, site not specified; F10.229 Alcohol dependence with intoxication, unspecified; R74.01 Elevation of levels of liver transaminase levels; E87.6 Hypokalemia; R73.9 Hyperglycemia, unspecified; H54.7 Unspecified visual loss; E86.0 Dehydration; Z53.29 Procedure and treatment not carried out because of patient's decision for other reasons; I10 Essential (primary) hypertension; Z86.711 Personal history of pulmonary embolism; Z88.0 Allergy status to penicillin; Z86.16 Personal history of COVID-19
CPT/HCPCS: 36415 ×2; 74178; 80048; 80053; 80074; 80076; 80305; 80307 ×2; 81001; 82607; 82746; 83036; 83540; 83550; 83605; 83690; 83735; 84100 ×2; 84145; 84439; 84443; 84702; 85025 ×2; 85610; 87040 ×2; 94010; A9270 ×3; J1630; J1644 ×2; J1808 ×2; J1836; J2270 ×3; J2405 ×4; J2470; J3010; J3360; J3411 ×3; J3480; J7030 ×2; J7040; J7120 ×2; Q9967; 96361; 96365; 96368; 96375; 96376; 99223; 99284; 99285-25; G0480; J0744; J3490

== ENCOUNTER 2025-09-25 22:14 | Emergency (ER) | payer MEDICAID ==
[2025-09-25] MEDS: Acetaminophen/HYDROcodone 325-10 MG Tab PO ONE (22:37)
[2025-09-25 22:48] LABS: BASOPHILS PERCENT AUTO 0.3 % (0.0-1.0); EOSINOPHILS PERCENT AUTO 1.6 % (1.0-3.0); LYMPHOCYTES PERCENT AUTO 17.0 % (20.5-50.1); MONOCYTES PERCENT AUTO 6.9 % (2-8); NEUTROPHILS PERCENT AUTO 74.2 % (42.2-75.2); PLATELET COUNT,PLT 363 10^3/uL (150-450); RED BLOOD CELL COUNT 3.92 10^6/uL (4.2-5.4); WHITE BLOOD CELL COUNT,WBC 7.3 10^3/uL (5.0-10.0)
[2025-09-25 23:07] LABS: A/G RATIO 0.9; ALANINE AMINOTRANSFERASE,ALT 54 U/L (14-59); ASPARTATE AMNIOTRANSFERASE,AST 43 U/L (15-37); BILIRUBIN TOTAL 0.2 mg/dL (0.2-1.0); BLOOD UREA NITROGEN,BUN 8 mg/dL (7-18); CARBON DIOXIDE,CO2 28 mmol/L (21-32); CHLORIDE,CL 102 mmol/L (98-107); CREATININE 0.67 mg/dL (0.55-1.02); EST CRCL DRUG DOSING (CG) 106.18 mL/min; GLUCOSE RANDOM 114 mg/dL (70-99); POTASSIUM,K 4.0 mmol/L (3.5-5.1); PROTEIN TOTAL,TP 8.4 g/dL (6.4-8.2); SODIUM,NA 140 mmol/L (136-145)
[2025-09-25 23:08] LABS: ESTIMATED GFR 124 mL/min (>=60); ETHANOL BLOOD MEDICAL < 3 mg/dL (0)
[2025-09-25] MEDS: Take Home: Acetaminophen/HYDROcodone 325-5 MG, 5 Tab Pack PO ONE (23:24)
[2025-09-25 23:26] VITALS: BP 136/98; PULSE 74
== END 2025-09-25 23:30 | disposition home or self-care (01) ==
LOC: DL.ED 22:14
DX: K85.20 Alcohol induced acute pancreatitis without necrosis or infection (principal); I10 Essential (primary) hypertension; Z88.0 Allergy status to penicillin; Z79.899 Other long term (current) drug therapy; Z86.16 Personal history of COVID-19
CPT/HCPCS: 36415; 80053; 80307; 83690; 85025; 96360; 99284; A9270; J7030